=== PATIENT | female | born 1945 | race American Indian/Alaskan Native ===

== ENCOUNTER 2018-09-23 23:47 | Inpatient (IN) | payer OTHER, MEDICARE ==
[2018-09-24] MEDS ORDERED: D50W (25GM) Vial IV ONE (00:26)
[2018-09-24] MEDS ORDERED: NACL 0.9% 1000 ML 1,000 ML IV ONE ×4 (00:29→05:52)
[2018-09-24] MEDS ORDERED: D50W (25GM) Syringe IV ONE ×4 (00:37→05:19)
--- NOTE | 2018-09-24 01:21 | XRay Report ---
FINAL REPORT PROCEDURE: XR CHEST 1V AP TECHNIQUE: Chest radiograph anteroposterior view. CPT 61007 HISTORY: hypotension, weakness COMPARISON: No prior studies are available for comparison. FINDINGS: Heart: Heart size is enlarged. Mediastinum/Vessels: Normal. Lungs/Pleural space: Mild infiltrate/atelectasis left lower lung. No effusion or pneumothorax. Bony thorax: No acute osseous abnormality. Life support devices: None. IMPRESSION: Moderate cardiomegaly. There is mild infiltrate/atelectasis in the left lower lung..
[2018-09-24 01:32] LABS: Mean Corpuscular HGB Conc 31 % (30-34); Mean Corpuscular Volume 100 fl (79-97); Platelet Count 151 K/mm3 (140-440); Red Blood Count 4.39 M/mm3 (3.65-5.03)
[2018-09-24 01:33] LABS: Hematocrit 43.8 % (30.3-42.9); Hemoglobin 13.5 gm/dl (10.1-14.3); Red Cell Distribution Width 21.5 % (13.2-15.2)
[2018-09-24] MEDS ORDERED: LEVAQUIN 750MG/150ML 750 MG/150 ML BAG IV ONE (01:46)
[2018-09-24] MEDS ORDERED: ZOSYN/NS 4.5GM/100ML 4.5 GM/100 ML VIAL IV ONE (01:46)
[2018-09-24 02:16] LABS: INR > 17.67 (0.87-1.13)
[2018-09-24 02:17] LABS: Partial Thromboplastin Time 63.4 Sec. (24.2-36.6)
--- NOTE | 2018-09-24 02:43 | Emergency Department Report ---
- General Chief complaint: Hypoglycemia Stated complaint: HYPOTENSION Time Seen by Provider: 09/24/18 00:08 Source: patient Mode of arrival: Ambulatory Limitations: No Limitations - History of Present Illness Initial comments: 73-year-old female with a past medical history atrial fibrillation on Xarelto, DVT, diabetes, hypertension, and chronic renal insufficiency presents to the Hospital complaining of generalized weakness 3 weeks since receiving vascular procedure. Family states that she had crooked veins and she was had a procedure to straighten her veins. She had follow-up visit scheduled for 2 days ago but she did not go secondary to generalized weakness. Patient apparently has not been eating or drinking much the last several days. Accu-Chek was in the 40s upon EMS arrival. Patient received oral glucose and presents to the ER with a glucose in patient received D50 IV after arrival. Patient also hypotensive with systolic and 80s upon arrival with IV fluids initiated by EMS in progress. Patient states [facility] performed vascular surgery. - Related Data Home Medications Medication Instructions Recorded Confirmed Last Taken Allopurinol [Zyloprim] 100 mg PO QDAY 09/24/18 09/24/18 Unknown Atenolol [Tenormin] 50 mg PO BID 09/24/18 09/24/18 Unknown AtorvaSTATin [Lipitor] 20 mg PO QHS 09/24/18 09/24/18 Unknown Diltiazem HCl [Diltiazem ER] 300 mg PO QDAY 09/24/18 09/24/18 Unknown Linagliptin [Tradjenta] 5 mg PO QAM 09/24/18 09/24/18 Unknown RX: Levothyroxine Sodium 137 mcg PO QDAY 09/24/18 09/24/18 Unknown [Levothyroxine] RX: Paricalcitol 1 mcg PO QDAY 09/24/18 09/24/18 Unknown Rivaroxaban [Xarelto] 15 mg PO QPM 09/24/18 09/24/18 Unknown Allergies Allergy/AdvReac Type Severity Reaction Status Date / Time No Known Allergies Allergy Unverified 08/26/18 17:14 ED Review of Systems ROS: Stated complaint: HYPOTENSION Other details as noted in HPI Comment: All other systems reviewed and negative ED Past Medical Hx - Past Medical History Previous Medical History?: Yes Hx Hypertension: Yes Hx Diabetes: Yes Hx Deep Vein Thrombosis: Yes Hx Renal Disease: Yes Additional medical history: Afib - Surgical History Past Surgical History?: Yes Additional Surgical History: Right leg surgery aug 2018 - Social History Smoking Status: Unknown if ever smoked Substance Use Type: None - Medications Home Medications: Home Medications Medication Instructions Recorded Confirmed Last Taken Type Allopurinol [Zyloprim] 100 mg PO QDAY 09/24/18 09/24/18 Unknown History Atenolol [Tenormin] 50 mg PO BID 09/24/18 09/24/18 Unknown History AtorvaSTATin [Lipitor] 20 mg PO QHS 09/24/18 09/24/18 Unknown History Diltiazem HCl [Diltiazem ER] 300 mg PO QDAY 09/24/18 09/24/18 Unknown History Linagliptin [Tradjenta] 5 mg PO QAM 09/24/18 09/24/18 Unknown History RX: Levothyroxine Sodium 137 mcg PO QDAY 09/24/18 09/24/18 Unknown History [Levothyroxine] RX: Paricalcitol 1 mcg PO QDAY 09/24/18 09/24/18 Unknown History Rivaroxaban [Xarelto] 15 mg PO QPM 09/24/18 09/24/18 Unknown History ED Physical Exam - General Limitations: No Limitations - Other Other exam information: General: No limitations, patient is alert in no acute distress Head exam: Atraumatic, normocephalic Eyes exam: Normal appearance, pupils equal reactive to light, extraocular movements intact ENT: Moist mucous membrane, normal oropharynx Neck exam: Normal inspection, full range of motion, no meningismus nontender Respiratory exam: Clear to auscultation bilateral, no wheezes, rales, crackles Cardiovascular: Normal rate and rhythm, normal heart sounds Abdomen: Soft, nondistended, and nontender, with normal bowel sounds, no rebound, or guarding Extremity: Full range of motion normal inspection no deformity Back: Normal Inspection, full range of motion, no tenderness Neurologic: Alert, oriented to self, place, but not to year, cranial nerves intact, no motor or sensory deficit Psychiatric: normal affect, normal mood Skin: Warm, dry, intact ED Course Vital Signs 09/24/18 09/24/18 09/24/18 00:02 00:15 00:23 Temperature 96.9 F L Pulse Rate 114 H 104 H 116 H Pulse Rate [ Anterior Bilateral Throughout] Respiratory 13 18 20 Rate Respiratory Rate [Anterior Bilateral Throughout] Blood Pressure 87/58 87/58 O2 Sat by Pulse Oximetry 09/24/18 09/24/18 09/24/18 00:30 01:23 01:25 Temperature Pulse Rate 105 H 94 H Pulse Rate [ Anterior Bilateral Throughout] Respiratory 26 H 16 Rate Respiratory Rate [Anterior Bilateral Throughout] Blood Pressure 114/55 O2 Sat by Pulse 95 Oximetry 09/24/18 09/24/18 09/24/18 01:31 01:45 02:01 Temperature Pulse Rate 116 H 101 H 102 H Pulse Rate [ Anterior Bilateral Throughout] Respiratory 18 13 17 Rate Respiratory Rate [Anterior Bilateral Throughout] Blood Pressure 93/33 88/47 100/73 O2 Sat by Pulse 18 L Oximetry 09/24/18 09/24/18 09/24/18 02:15 02:31 02:35 Temperature Pulse Rate 110 H 104 H 149 H Pulse Rate [ Anterior Bilateral Throughout] Respiratory 19 18 17 Rate Respiratory Rate [Anterior Bilateral Throughout] Blood Pressure 56/31 99/62 O2 Sat by Pulse 88 Oximetry 09/24/18 09/24/18 09/24/18 02:45 03:01 03:15 Temperature Pulse Rate 99 H 107 H 115 H Pulse Rate [ Anterior Bilateral Throughout] Respiratory 20 27 H 14 Rate Respiratory Rate [Anterior Bilateral Throughout] Blood Pressure 99/62 99/62 99/62 O2 Sat by Pulse Oximetry 09/24/18 09/24/18 09/24/18 03:30 03:45 04:01 Temperature Pulse Rate 118 H 110 H 108 H Pulse Rate [ Anterior Bilateral Throughout] Respiratory 21 22 18 Rate Respiratory Rate [Anterior Bilateral Throughout] Blood Pressure 95/65 94/63 91/66 O2 Sat by Pulse Oximetry 09/24/18 09/24/18 09/24/18 04:09 04:12 04:15 Temperature Pulse Rate 99 H Pulse Rate [ 100 H Anterior Bilateral Throughout] Respiratory 17 Rate Respiratory 23 Rate [Anterior Bilateral Throughout] Blood Pressure 95/51 O2 Sat by Pulse 96 Oximetry 09/24/18 09/24/18 09/24/18 04:25 04:31 04:45 Temperature Pulse Rate 129 H 160 H 151 H Pulse Rate [ Anterior Bilateral Throughout] Respiratory 12 13 Rate Respiratory Rate [Anterior Bilateral Throughout] Blood Pressure 165/98 171/147 171/108 O2 Sat by Pulse Oximetry 09/24/18 09/24/18 09/24/18 05:01 05:15 05:31 Temperature Pulse Rate 151 H 132 H 126 H Pulse Rate [ Anterior Bilateral Throughout] Respiratory 15 15 17 Rate Respiratory Rate [Anterior Bilateral Throughout] Blood Pressure 165/98 141/117 141/117 O2 Sat by Pulse Oximetry 09/24/18 09/24/18 09/24/18 05:45 06:01 06:15 Temperature Pulse Rate 133 H 113 H 116 H Pulse Rate [ Anterior Bilateral Throughout] Respiratory 17 19 18 Rate Respiratory Rate [Anterior Bilateral Throughout] Blood Pressure 65/34 68/43 113/65 O2 Sat by Pulse Oximetry 09/24/18 09/24/18 09/24/18 06:31 06:40 06:45 Temperature Pulse Rate 111 H 109 H Pulse Rate [ 127 H Anterior Bilateral Throughout] Respiratory 19 14 Rate Respiratory 19 Rate [Anterior Bilateral Throughout] Blood Pressure 107/49 82/53 O2 Sat by Pulse Oximetry 09/24/18 09/24/18 09/24/18 06:51 06:55 07:00 Temperature 95.9 F L Pulse Rate 119 H 110 H Pulse Rate [ Anterior Bilateral Throughout] Respiratory 24 18 Rate Respiratory Rate [Anterior Bilateral Throughout] Blood Pressure 85/61 90/60 O2 Sat by Pulse Oximetry 09/24/18 09/24/18 09/24/18 07:01 07:05 07:11 Temperature Pulse Rate 103 H 126 H 133 H Pulse Rate [ Anterior Bilateral Throughout] Respiratory 17 17 18 Rate Respiratory Rate [Anterior Bilateral Throughout] Blood Pressure 100/68 100/68 107/56 O2 Sat by Pulse Oximetry 09/24/18 09/24/18 09/24/18 07:15 07:20 07:25 Temperature Pulse Rate 108 H 103 H 109 H Pulse Rate [ Anterior Bilateral Throughout] Respiratory 19 17 17 Rate Respiratory Rate [Anterior Bilateral Throughout] Blood Pressure 106/64 114/63 98/71 O2 Sat by Pulse Oximetry 09/24/18 09/24/18 09/24/18 07:30 07:35 07:40 Temperature Pulse Rate 109 H 108 H 102 H Pulse Rate [ Anterior Bilateral Throughout] Respiratory 15 16 13 Rate Respiratory Rate [Anterior Bilateral Throughout] Blood Pressure 96/67 96/64 98/65 O2 Sat by Pulse Oximetry 09/24/18 09/24/18 09/24/18 07:45 07:50 07:55 Temperature Pulse Rate 119 H 106 H 122 H Pulse Rate [ Anterior Bilateral Throughout] Respiratory 14 13 15 Rate Respiratory Rate [Anterior Bilateral Throughout] Blood Pressure 98/58 88/65 82/59 O2 Sat by Pulse Oximetry 09/24/18 09/24/18 09/24/18 08:00 08:05 08:10 Temperature Pulse Rate 110 H 111 H 127 H Pulse Rate [ Anterior Bilateral Throughout] Respiratory 16 16 Rate Respiratory Rate [Anterior Bilateral Throughout] Blood Pressure 104/73 98/29 124/57 O2 Sat by Pulse 100 Oximetry 09/24/18 09/24/18 09/24/18 08:11 08:15 08:21 Temperature Pulse Rate 100 H 108 H 120 H Pulse Rate [ Anterior Bilateral Throughout] Respiratory 17 17 17 Rate Respiratory Rate [Anterior Bilateral Throughout] Blood Pressure 46/16 46/16 110/74 O2 Sat by Pulse 83 L Oximetry 09/24/18 09/24/18 09/24/18 08:25 08:27 08:31 Temperature 95.6 F L Pulse Rate 120 H 124 H Pulse Rate [ Anterior Bilateral Throughout] Respiratory 15 18 Rate Respiratory Rate [Anterior Bilateral Throughout] Blood Pressure 110/74 108/68 O2 Sat by Pulse 96 Oximetry 09/24/18 09/24/18 09/24/18 08:34 08:35 08:41 Temperature Pulse Rate 105 H 104 H Pulse Rate [ Anterior Bilateral Throughout] Respiratory 15 17 21 Rate Respiratory Rate [Anterior Bilateral Throughout] Blood Pressure 108/68 103/61 O2 Sat by Pulse 96 92 Oximetry 09/24/18 09/24/18 09/24/18 08:45 08:47 08:50 Temperature Pulse Rate 120 H 108 H Pulse Rate [ Anterior Bilateral Throughout] Respiratory 24 12 22 Rate Respiratory Rate [Anterior Bilateral Throughout] Blood Pressure 95/56 75/59 O2 Sat by Pulse Oximetry 09/24/18 09/24/18 09/24/18 08:55 09:00 09:05 Temperature Pulse Rate 115 H 102 H 115 H Pulse Rate [ Anterior Bilateral Throughout] Respiratory 20 22 21 Rate Respiratory Rate [Anterior Bilateral Throughout] Blood Pressure 75/59 96/69 96/69 O2 Sat by Pulse 100 Oximetry 09/24/18 09/24/18 09/24/18 09:10 09:15 09:21 Temperature Pulse Rate 111 H 107 H 121 H Pulse Rate [ Anterior Bilateral Throughout] Respiratory 24 18 19 Rate Respiratory Rate [Anterior Bilateral Throughout] Blood Pressure 105/65 105/65 101/64 O2 Sat by Pulse 94 Oximetry 09/24/18 09:25 Temperature Pulse Rate 107 H Pulse Rate [ Anterior Bilateral Throughout] Respiratory 18 Rate Respiratory Rate [Anterior Bilateral Throughout] Blood Pressure 110/75 O2 Sat by Pulse Oximetry - Reevaluation(s) Reevaluation #1: 09/24/18 04:03 At this point in time patient has had 3 separate blood draws and each time the values are coming back hemolyzed and grossly abnormal. I placed a left sided EJ with an 18-gauge catheter and I birdie blood from the catheter without going through a Hep-Lock. We then placed the blood into tubes using a syringe without using a needle. I re-ordered for the fourth time coags and a CMP to try to get an accurate value. Systolic pressure in the 90s currently after completing 2 L of normal saline with a map above 65. Patient has significant cardiomegaly on x-ray with chronic A. fib and I'm concerned about CHF. Patient denies feeling short of breath at this time and has clear breaths sounds so we will continue with IV hydration with a 3rd liter of normal saline. Last blood draw was released by the labs although reported to be hemolyzed and shows significant renal insufficiency and uremia likely secondary to dehydration given ratio. Patient has a Augustin to monitor output and not made any urine despite receiving 2 L of normal saline. Patient is more alert compared to arrival presentation. Glucose remaining stable after second amp of D50. Patient covered with broad- spectrum antibiotics for sepsis. Warming blankets in place for mild hypothermia. 09/24/18 Shortly after I placed EJ in albuterol neb was initiated nursing reports that patient became restless, developed agonal respirations, and became unresponsive. Upon my arrival patient had agonal respiration. Initiated bag of oxygen and chest compressions. Patient was in PEA. She received 1 dose of epinephrine and was intubated. Positive return of spontaneous circulation after these actions. Right femoral central line placed using ultrasound. Reevaluation #2: 09/24/18 06:20 I called patient's daughter to inform her of her mother's critical change and poor prognosis. I was unable to get a hold of her spouse. I asked for the daughter to contact the . Both of them plan on returning to the ER - Consultations Consultation #1: 09/24/18 05:12 case d/w Dr Cole regarding dialsysis to clear xarleto and acute on renal failure. 09/24/18 05:23 09/24/18 05:49 case d/w posshazia culpl. jim is not cleared by dialysi Consultation #2: 09/24/18 05:49 case d/w Dr French critical care - Central Line Placement Right Femoral Consent Obtained: emergent situation Time Out Performed: Yes Patient Placed on Monitor/Pulse Ox: Yes MD Prep: mask, gown, gloves Central Line Prep: Chlorhexidine scrub Ultrasound Used for Placement: Yes Central Line Lumen Inserted: triple Bloods Obtained for Lab: Yes Central Line Position: good blood return Dressing Applied: Tegaderm Patient Tolerated Procedure: well Complications: none - EJ/Peripheral Line Neck L Time Out Performed: Yes Indications: multiple IV sites needed Skin Cleansed in Sterile Fashion: Yes Size: 20 Dressing Placed: Tegaderm Patient Tolerated Procedure: well - Intubation Time Out Performed: Yes Sedative: none Laryngoscope: none Size: 3 ET Tube Size: 7.5 Tube Secured Depth (cm): 22 Tube Secured Location: lips Tube Placement Confirmation: visualized tube passing t, equal breath sounds bilat, no breath sounds over epi, confirmation by capnometr Patient Tolerated Procedure: well Intubation Complications: none ED Medical Decision Making - Lab Data Result diagrams: 09/24/18 20:19 09/24/18 07:32 Lab Results 09/24/18 09/24/18 09/24/18 Range/Units 01:14 01:14 01:14 WBC 12.2 H (4.5-11.0) K/mm3 RBC 4.39 (3.65-5.03) M/mm3 Hgb 13.5 (10.1-14.3) gm/dl Hct 43.8 H (30.3-42.9) % MCV 100 H (79-97) fl MCH 31 (28-32) pg MCHC 31 (30-34) % RDW 21.5 H (13.2-15.2) % Plt Count 151 (140-440) K/mm3 Add Manual Diff Complete Total Counted 100 Seg Neuts % (Manual) 81.0 H (40.0-70.0) % Band Neutrophils % 5.0 % Lymphocytes % (Manual) 6.0 L (13.4-35.0) % Reactive Lymphs % (Man) 0 % Monocytes % (Manual) 8.0 H (0.0-7.3) % Eosinophils % (Manual) 0 (0.0-4.3) % Basophils % (Manual) 0 (0.0-1.8) % Metamyelocytes % 0 % Myelocytes % 0 % Promyelocytes % 0 % Blast Cells % 0 % Nucleated RBC % Not Reportable Seg Neutrophils # Man 9.9 H (1.8-7.7) K/mm3 Band Neutrophils # 0.6 K/mm3 Lymphocytes # (Manual) 0.7 L (1.2-5.4) K/mm3 Abs React Lymphs (Man) 0.0 K/mm3 Monocytes # (Manual) 1.0 H (0.0-0.8) K/mm3 Eosinophils # (Manual) 0.0 (0.0-0.4) K/mm3 Basophils # (Manual) 0.0 (0.0-0.1) K/mm3 Metamyelocytes # 0.0 K/mm3 Myelocytes # 0.0 K/mm3 Promyelocytes # 0.0 K/mm3 Blast Cells # 0.0 K/mm3 WBC Morphology Not Reportable Hypersegmented Neuts Not Reportable Hyposegmented Neuts Not Reportable Hypogranular Neuts Not Reportable Smudge Cells Not Reportable Toxic Granulation Not Reportable Toxic Vacuolation Not Reportable Dohle Bodies Not Reportable Pelger-Huet Anomaly Not Reportable Eloisa Rods Not Reportable Platelet Estimate Appears normal Clumped Platelets Not Reportable Plt Clumps, EDTA Not Reportable Large Platelets Not Reportable Giant Platelets Not Reportable Platelet Satelliting Not Reportable Plt Morphology Comment Not Reportable RBC Morphology Not Reportable Dimorphic RBCs Not Reportable Polychromasia Not Reportable Hypochromasia Not Reportable Poikilocytosis Not Reportable Anisocytosis 1+ Microcytosis Not Reportable Macrocytosis Not Reportable Spherocytes Not Reportable Pappenheimer Bodies Not Reportable Sickle Cells Not Reportable Target Cells Not Reportable Tear Drop Cells Not Reportable Ovalocytes 1+ Helmet Cells Not Reportable Castellano-Nile Bodies Not Reportable [place] Rings Not Reportable Kermit Cells Not Reportable Bite Cells Not Reportable Crenated Cell Not Reportable Elliptocytes 1+ Acanthocytes (Spur) Not Reportable Rouleaux Not Reportable Hemoglobin C Crystals Not Reportable Schistocytes Not Reportable Malaria parasites Not Reportable Keenan Bodies Not Reportable Hem Pathologist Commnt No PT > 120.0 H (12.2-14.9) Sec. INR > 17.67 H* (0.87-1.13) APTT 63.4 H* (24.2-36.6) Sec. VBG pH (7.320-7.420) Sodium (137-145) mmol/L Potassium (3.6-5.0) mmol/L Chloride (98-107) mmol/L Carbon Dioxide (22-30) mmol/L Anion Gap mmol/L BUN (7-17) mg/dL Creatinine (0.7-1.2) mg/dL Estimated GFR ml/min BUN/Creatinine Ratio % Glucose (65-100) mg/dL POC Glucose (70-105) Lactic Acid 8.90 H* (0.7-2.0) mmol/L Calcium (8.4-10.2) mg/dL Total Bilirubin (0.1-1.2) mg/dL AST (5-40) units/L ALT (7-56) units/L Alkaline Phosphatase (35-129) units/L Total Creatine Kinase (30-135) units/L CK-MB (CK-2) (0.0-4.0) ng/mL CK-MB (CK-2) Rel Index (0-4) Troponin T (0.00-0.029) ng/mL Total Protein (6.3-8.2) g/dL Albumin (3.9-5) g/dL Albumin/Globulin Ratio % Triglycerides (2-149) mg/dL Cholesterol (50-199) mg/dL LDL Cholesterol Direct (50-130) mg/dL HDL Cholesterol (40-59) mg/dL Cholesterol/HDL Ratio % 09/24/18 09/24/18 09/24/18 Range/Units 01:21 03:03 03:13 WBC (4.5-11.0) K/mm3 RBC (3.65-5.03) M/mm3 Hgb (10.1-14.3) gm/dl Hct (30.3-42.9) % MCV (79-97) fl MCH (28-32) pg MCHC (30-34) % RDW (13.2-15.2) % Plt Count (140-440) K/mm3 Add Manual Diff Total Counted Seg Neuts % (Manual) (40.0-70.0) % Band Neutrophils % % Lymphocytes % (Manual) (13.4-35.0) % Reactive Lymphs % (Man) % Monocytes % (Manual) (0.0-7.3) % Eosinophils % (Manual) (0.0-4.3) % Basophils % (Manual) (0.0-1.8) % Metamyelocytes % % Myelocytes % % Promyelocytes % % Blast Cells % % Nucleated RBC % Seg Neutrophils # Man (1.8-7.7) K/mm3 Band Neutrophils # K/mm3 Lymphocytes # (Manual) (1.2-5.4) K/mm3 Abs React Lymphs (Man) K/mm3 Monocytes # (Manual) (0.0-0.8) K/mm3 Eosinophils # (Manual) (0.0-0.4) K/mm3 Basophils # (Manual) (0.0-0.1) K/mm3 Metamyelocytes # K/mm3 Myelocytes # K/mm3 Promyelocytes # K/mm3 Blast Cells # K/mm3 WBC Morphology Hypersegmented Neuts Hyposegmented Neuts Hypogranular Neuts Smudge Cells Toxic Granulation Toxic Vacuolation Dohle Bodies Pelger-Huet Anomaly Eloisa Rods Platelet Estimate Clumped Platelets Plt Clumps, EDTA Large Platelets Giant Platelets Platelet Satelliting Plt Morphology Comment RBC Morphology Dimorphic RBCs Polychromasia Hypochromasia Poikilocytosis Anisocytosis Microcytosis Macrocytosis Spherocytes Pappenheimer Bodies Sickle Cells Target Cells Tear Drop Cells Ovalocytes Helmet Cells Castellano-Nile Bodies [place] Rings Kristian Cells Bite Cells Crenated Cell Elliptocytes Acanthocytes (Spur) Rouleaux Hemoglobin C Crystals Schistocytes Malaria parasites Keenan Bodies Hem Pathologist Commnt PT (12.2-14.9) Sec. INR (0.87-1.13) APTT (24.2-36.6) Sec. VBG pH (7.320-7.420) Sodium 142 (137-145) mmol/L Potassium 5.8 H (3.6-5.0) mmol/L Chloride 102.2 (98-107) mmol/L Carbon Dioxide 12 L (22-30) mmol/L Anion Gap 34 mmol/L BUN 78 H (7-17) mg/dL Creatinine 6.4 H (0.7-1.2) mg/dL Estimated GFR 8 ml/min BUN/Creatinine Ratio 12 % Glucose 157 H (65-100) mg/dL POC Glucose 79 142 H (70-105) Lactic Acid (0.7-2.0) mmol/L Calcium 8.0 L (8.4-10.2) mg/dL Total Bilirubin 5.10 H (0.1-1.2) mg/dL AST 623 H (5-40) units/L ALT 264 H (7-56) units/L Alkaline Phosphatase 219 H (35-129) units/L Total Creatine Kinase (30-135) units/L CK-MB (CK-2) (0.0-4.0) ng/mL CK-MB (CK-2) Rel Index (0-4) Troponin T (0.00-0.029) ng/mL Total Protein 5.9 L (6.3-8.2) g/dL Albumin 3.1 L (3.9-5) g/dL Albumin/Globulin Ratio 1.1 % Triglycerides (2-149) mg/dL Cholesterol (50-199) mg/dL LDL Cholesterol Direct (50-130) mg/dL HDL Cholesterol (40-59) mg/dL Cholesterol/HDL Ratio % 09/24/18 09/24/18 09/24/18 Range/Units 03:13 03:13 04:06 WBC (4.5-11.0) K/mm3 RBC (3.65-5.03) M/mm3 Hgb (10.1-14.3) gm/dl Hct (30.3-42.9) % MCV (79-97) fl MCH (28-32) pg MCHC (30-34) % RDW (13.2-15.2) % Plt Count (140-440) K/mm3 Add Manual Diff Total Counted Seg Neuts % (Manual) (40.0-70.0) % Band Neutrophils % % Lymphocytes % (Manual) (13.4-35.0) % Reactive Lymphs % (Man) % Monocytes % (Manual) (0.0-7.3) % Eosinophils % (Manual) (0.0-4.3) % Basophils % (Manual) (0.0-1.8) % Metamyelocytes % % Myelocytes % % Promyelocytes % % Blast Cells % % Nucleated RBC % Seg Neutrophils # Man (1.8-7.7) K/mm3 Band Neutrophils # K/mm3 Lymphocytes # (Manual) (1.2-5.4) K/mm3 Abs React Lymphs (Man) K/mm3 Monocytes # (Manual) (0.0-0.8) K/mm3 Eosinophils # (Manual) (0.0-0.4) K/mm3 Basophils # (Manual) (0.0-0.1) K/mm3 Metamyelocytes # K/mm3 Myelocytes # K/mm3 Promyelocytes # K/mm3 Blast Cells # K/mm3 WBC Morphology Hypersegmented Neuts Hyposegmented Neuts Hypogranular Neuts Smudge Cells Toxic Granulation Toxic Vacuolation Dohle Bodies Pelger-Huet Anomaly Eloisa Rods Platelet Estimate Clumped Platelets Plt Clumps, EDTA Large Platelets Giant Platelets Platelet Satelliting Plt Morphology Comment RBC Morphology Dimorphic RBCs Polychromasia Hypochromasia Poikilocytosis Anisocytosis Microcytosis Macrocytosis Spherocytes Pappenheimer Bodies Sickle Cells Target Cells Tear Drop Cells Ovalocytes Helmet Cells Castellano-Nile Bodies [place] Rings Kristian Cells Bite Cells Crenated Cell Elliptocytes Acanthocytes (Spur) Rouleaux Hemoglobin C Crystals Schistocytes Malaria parasites Keenan Bodies Hem Pathologist Commnt PT 120.0 H > 120.0 H (12.2-14.9) Sec. INR > 17.67 H* > 17.67 H* (0.87-1.13) APTT 61.3 H* 63.2 H* (24.2-36.6) Sec. VBG pH 7.137 L* (7.320-7.420) Sodium (137-145) mmol/L Potassium (3.6-5.0) mmol/L Chloride (98-107) mmol/L Carbon Dioxide (22-30) mmol/L Anion Gap mmol/L BUN (7-17) mg/dL Creatinine (0.7-1.2) mg/dL Estimated GFR ml/min BUN/Creatinine Ratio % Glucose (65-100) mg/dL POC Glucose (70-105) Lactic Acid (0.7-2.0) mmol/L Calcium (8.4-10.2) mg/dL Total Bilirubin (0.1-1.2) mg/dL AST (5-40) units/L ALT (7-56) units/L Alkaline Phosphatase (35-129) units/L Total Creatine Kinase (30-135) units/L CK-MB (CK-2) (0.0-4.0) ng/mL CK-MB (CK-2) Rel Index (0-4) Troponin T (0.00-0.029) ng/mL Total Protein (6.3-8.2) g/dL Albumin (3.9-5) g/dL Albumin/Globulin Ratio % Triglycerides (2-149) mg/dL Cholesterol (50-199) mg/dL LDL Cholesterol Direct (50-130) mg/dL HDL Cholesterol (40-59) mg/dL Cholesterol/HDL Ratio % 09/24/18 09/24/18 Range/Units 04:06 04:26 WBC (4.5-11.0) K/mm3 RBC (3.65-5.03) M/mm3 Hgb (10.1-14.3) gm/dl Hct (30.3-42.9) % MCV (79-97) fl MCH (28-32) pg MCHC (30-34) % RDW (13.2-15.2) % Plt Count (140-440) K/mm3 Add Manual Diff Total Counted Seg Neuts % (Manual) (40.0-70.0) % Band Neutrophils % % Lymphocytes % (Manual) (13.4-35.0) % Reactive Lymphs % (Man) % Monocytes % (Manual) (0.0-7.3) % Eosinophils % (Manual) (0.0-4.3) % Basophils % (Manual) (0.0-1.8) % Metamyelocytes % % Myelocytes % % Promyelocytes % % Blast Cells % % Nucleated RBC % Seg Neutrophils # Man (1.8-7.7) K/mm3 Band Neutrophils # K/mm3 Lymphocytes # (Manual) (1.2-5.4) K/mm3 Abs React Lymphs (Man) K/mm3 Monocytes # (Manual) (0.0-0.8) K/mm3 Eosinophils # (Manual) (0.0-0.4) K/mm3 Basophils # (Manual) (0.0-0.1) K/mm3 Metamyelocytes # K/mm3 Myelocytes # K/mm3 Promyelocytes # K/mm3 Blast Cells # K/mm3 WBC Morphology Hypersegmented Neuts Hyposegmented Neuts Hypogranular Neuts Smudge Cells Toxic Granulation Toxic Vacuolation Dohle Bodies Pelger-Huet Anomaly Eloisa Rods Platelet Estimate Clumped Platelets Plt Clumps, EDTA Large Platelets Giant Platelets Platelet Satelliting Plt Morphology Comment RBC Morphology Dimorphic RBCs Polychromasia Hypochromasia Poikilocytosis Anisocytosis Microcytosis Macrocytosis Spherocytes Pappenheimer Bodies Sickle Cells Target Cells Tear Drop Cells Ovalocytes Helmet Cells Castellano-Nile Bodies [place] Rings Kermit Cells Bite Cells Crenated Cell Elliptocytes Acanthocytes (Spur) Rouleaux Hemoglobin C Crystals Schistocytes Malaria parasites Keenan Bodies Hem Pathologist Commnt PT (12.2-14.9) Sec. INR (0.87-1.13) APTT (24.2-36.6) Sec. VBG pH (7.320-7.420) Sodium 139 (137-145) mmol/L Potassium 5.7 H (3.6-5.0) mmol/L Chloride 103.3 (98-107) mmol/L Carbon Dioxide 11 L (22-30) mmol/L Anion Gap 30 mmol/L BUN 76 H (7-17) mg/dL Creatinine 6.1 H (0.7-1.2) mg/dL Estimated GFR 8 ml/min BUN/Creatinine Ratio 12 % Glucose 175 H (65-100) mg/dL POC Glucose 154 H (70-105) Lactic Acid (0.7-2.0) mmol/L Calcium 7.5 L (8.4-10.2) mg/dL Total Bilirubin 4.80 H (0.1-1.2) mg/dL AST 606 H (5-40) units/L ALT 255 H (7-56) units/L Alkaline Phosphatase 197 H (35-129) units/L Total Creatine Kinase 1306 H (30-135) units/L CK-MB (CK-2) 37.5 H (0.0-4.0) ng/mL CK-MB (CK-2) Rel Index 2.8 (0-4) Troponin T 0.152 H* (0.00-0.029) ng/mL Total Protein 5.7 L (6.3-8.2) g/dL Albumin 2.9 L (3.9-5) g/dL Albumin/Globulin Ratio 1.0 % Triglycerides 73 (2-149) mg/dL Cholesterol 174 (50-199) mg/dL LDL Cholesterol Direct 110 (50-130) mg/dL HDL Cholesterol 55 (40-59) mg/dL Cholesterol/HDL Ratio 3.16 % - EKG Data -: EKG Interpreted by Me (afib) EKG shows normal: axis (qrs 137), QRS complexes (qrsd 98), ST-T waves (no stemi) - EKG Data When compared to previous EKG there are: no significant change - Radiology Data Radiology results: report reviewed FINAL REPORT PROCEDURE: XR CHEST 1V AP TECHNIQUE: Chest radiograph anteroposterior view. CPT 56518 HISTORY: hypotension, weakness COMPARISON: No prior studies are available for comparison. FINDINGS: Heart: Heart size is enlarged. Mediastinum/Vessels: Normal. Lungs/Pleural space: Mild infiltrate/atelectasis left lower lung. No effusion or pneumothorax. Bony thorax: No acute osseous abnormality. Life support devices: None. IMPRESSION: Moderate cardiomegaly. There is mild infiltrate/atelectasis in the left lower lung.. FINAL REPORT PROCEDURE: XR CHEST 1V AP TECHNIQUE: Chest radiograph anteroposterior view. CPT 05309 HISTORY: ETT placement COMPARISON: Earlier the same date FINDINGS: Heart: Heart size is enlarged stable. Mediastinum/Vessels: Normal. Lungs/Pleural space: No significant change in mild infiltrate/atelectasis left lower lung.. Bony thorax: No acute osseous abnormality. Life support devices: The endotracheal tube ends at the alfonso. A nasogastric tube is curled in the upper esophagus.. IMPRESSION: No significant change in mild infiltrate/atelectasis left lower lung. Stable cardiomegaly. The nasogastric tube is curled in the upper esophagus and will need to be repositioned. The endotracheal tube ends at the alfonso. These tubes need to be repositioned. The above findings are discussed patient's ER physician Dr. Ryan at the time of dictation 05:28 Eastern standard time on 09/24/2018 - Medical Decision Making After patient's family left the bedside patient arrested. Patient is very sick with severe sepsis, septic shock, possible DIC with multiorgan dysfunction. Patient has a very poor prognosis. Case discussed with the renal, poison control, and critical care attending in the ED. Patient admitted to ICU to hospitalist service. - Differential Diagnosis sepsis, septic shock, coagulopathy, bleeding, infection. Critical Care Time: Yes Critical care time in (mins) excluding proc time.: 90 Critical care attestation.: If time is entered above; I have spent that time in minutes in the direct care of this critically ill patient, excluding procedure time. ED Disposition Clinical Impression: Septic shock, Multiple organ failure, Coagulopathy, Acute on chronic renal failure, Pulmonary infiltrate, Elevated LFTs, Hyperkalemia, Lactic acid acidosis Disposition: DC-[id number] OP ADMIT IP TO THIS HOSP Is pt being admited?: Yes Time of Disposition: 05:53 (Dr Cole/hosp)
[2018-09-24 03:01] LABS: Anisocytosis 1+; Band Neutrophils # (Manual) 0.6 K/mm3; Basophils % (Manual) 0 % (0.0-1.8); Eosinophils % (Manual) 0 % (0.0-4.3); Ovalocytes 1+; Total Cells Counted 100
[2018-09-24 03:44] LABS: Albumin 3.1 g/dL (3.9-5)
[2018-09-24 03:51] LABS: INR > 17.67 (0.87-1.13); Partial Thromboplastin Time 61.3 Sec. (24.2-36.6)
[2018-09-24] MEDS ORDERED: VANCOMYCIN 2,000 MG in NACL 0.9% 500 ML 500 ML IV ONE (04:00)
[2018-09-24] MEDS ORDERED: PROVENTIL IH ONE (04:02)
[2018-09-24] MEDS ORDERED: ADRENALIN ONE ×2 (04:20→18:10)
[2018-09-24 04:29] LABS: Creatine Kinase MB 37.5 ng/mL (0.0-4.0)
[2018-09-24 04:30] LABS: Albumin 2.9 g/dL (3.9-5); Calcium 7.5 mg/dL (8.4-10.2)
[2018-09-24 04:48] LABS: INR > 17.67 (0.87-1.13)
[2018-09-24 04:49] LABS: Partial Thromboplastin Time 63.2 Sec. (24.2-36.6)
[2018-09-24] MEDS ORDERED: ARTIFICIAL TEARS OPHTH OINT OU PRN (04:54)
[2018-09-24] MEDS ORDERED: VASELINE LIP THERAPY TP PRN (04:54)
[2018-09-24] MEDS ORDERED: CALCIUM GLUCONATE 1,000 MG in NACL 0.9% 100 ML IV ONE (05:13)
[2018-09-24 05:19] LABS: Chol/HDL Ratio 3.16 %
[2018-09-24] MEDS ORDERED: HumuLIN R IV ONE (05:19)
--- NOTE | 2018-09-24 05:29 | XRay Report ---
FINAL REPORT PROCEDURE: XR CHEST 1V AP TECHNIQUE: Chest radiograph anteroposterior view. CPT 01942 HISTORY: ETT placement COMPARISON: Earlier the same date FINDINGS: Heart: Heart size is enlarged stable. Mediastinum/Vessels: Normal. Lungs/Pleural space: No significant change in mild infiltrate/atelectasis left lower lung.. Bony thorax: No acute osseous abnormality. Life support devices: The endotracheal tube ends at the alfonso. A nasogastric tube is curled in the u pper esophagus.. IMPRESSION: No significant change in mild infiltrate/atelectasis left lower lung. Stable cardiomegaly. The nasogastric tube is curled in the upper esophagus and will need to be repositioned. The endotrach eal tube ends at the alfonso. These tubes need to be repositioned. The above findings are discussed patient's ER physician Dr. Ryan at the time of dictation 05:28 Gena sands standard time on 09/24/2018
[2018-09-24] MEDS ORDERED: ZOFRAN IV PRN (06:06)
[2018-09-24] MEDS ORDERED: LEVOPHED DRIP 4 MG/NS 250 ML 4 MG/250 ML BAG IV ONE (06:06)
[2018-09-24] MEDS ORDERED: TYLENOL PR PRN (06:09)
--- NOTE | 2018-09-24 06:13 | XRay Report ---
FINAL REPORT PROCEDURE: XR CHEST 1V AP TECHNIQUE: Chest radiograph anteroposterior view. CPT 92562 HISTORY: E T TUBE insertion COMPARISON: Earlier the same day FINDINGS: Heart: Size remains enlarged stable. Mediastinum/Vessels: Normal. Lungs/Pleural space: Slight infiltrate/atelectasis in the lower lungs are noted.. Bony thorax: No acute osseous abnormality. Life support devices: The endotracheal tube ends 3 centimeters above the alfonso. A nasogastric tube e nds below the hemidiaphragms. IMPRESSION: Tubes are properly positioned. Mild atelectasis in both lower lungs. Stable cardiomegaly..
--- NOTE | 2018-09-24 06:13 | XRay Report ---
FINAL REPORT PROCEDURE: XR ABDOMEN 1V AP TECHNIQUE: Abdominal radiograph, single supine AP view. HISTORY: ngt COMPARISON: No prior studies are available for comparison. FINDINGS: Bowel gas pattern:Nonobstructive. Masses or calcifications:None. Bony structures:No significant abnormality. Other:Nasogastric tube ends in the lower stomach. IMPRESSION: The nasogastric tube ends in the lower stomach
[2018-09-24] MEDS: LEVOPHED DRIP 4 MG/NS 250 ML 4 MG/250 ML BAG IV SCH ×3 (06:30→22:15)
[2018-09-24] MEDS: NACL 0.9% 1000 ML 1,000 ML IV SCH ×5 (06:59→20:37)
[2018-09-24] MEDS ORDERED: VANCOMYCIN PHARMACY TO DOSE IV SCH (07:00)
[2018-09-24 07:02] LABS: Calcium 7.4 mg/dL (8.4-10.2)
[2018-09-24 08:02] LABS: Calcium 7.3 mg/dL (8.4-10.2)
--- NOTE | 2018-09-24 08:42 | Consultation ---
Addendum entered and electronically signed by DAPHNEY NAVARRO MD 09/24/18 12:02: PEA cardiac arrest Coagulopathy / ? DIC / ? xarelto toxicity Acute respiratory failure Hypotension Acute on chronic renal failure Increased risk for spontaneous significant bleed PCC and Vit K ordered Discussed case with Pharmacology, hematology and interventional radiology. Plan for emergent dialysis Echo 10/2017: showed EF 50-55%, RA severely dilated, mod MR, severe TR, mild to mod OR, RV mod dilated, mod pulm HTN with RVSP 58mmHg. Lexiscan MPI 06/2017: showed small partly reversible anterior wall defect, severe septal hypokinesis, EF 57%, suggestive of small area of prior infarction with minimal residual ischemia in the LAD, no significant ischemia. Original Note: History of Present Illness Consult date: 09/24/18 Requesting physician: RADHA TRIPLETT Consult reason: other (bleeding) History of present illness: The pt is a 73 YO female with a past medical history of HFpEF, permanent atrial fibrillation, anticoagulated with xarelto, HTN, HLP, DM, CKD, CVI. She is followed in our office by Dr. Barbosa. She is intubated on evaluation and thus HPI obtained per the chart and per family members at bedside. Per pt's family members, pt has been experiencing generalized weakness and lethargy with decreased oral intake for the past 3 weeks. She was noted to develop confusion and increased lethargy and weakness yesterday evening. Following arrival to ED, pt was noted to be hypotensive and hypoglycemic with hypothermia. This morning in ED, the patient became restless, developed agonal respirations, and became unresponsive. She was noted to be in PEA and ACLS was initiated. She received 1 dose of epinephrine and was intubated and ROSC was obtained. Labwork is significant for coagulopathy with INR >17, DDimer >4K, fibrinogen 140, acute renal failure, hyperkalemia, lactic acidosis, transaminitis. Pt is currently intubated, on levophed gtt, bleeding noted from OG tube. Of note, pt underwent RLE venous ablation on 09/09/2018 per [facility]. Per her family, she has been experiencing weakness since this procedure. Echo done 10/2017 showed EF 50-55%, RA severely dilated, mod MR, severe TR, mild to mod OR, RV mod dilated, mod pulm HTN with RVSP 58mmHg. Lexiscan MPI stress test done 06/2017 showed small partly reversible anterior wall defect, severe septal hypokinesis, EF 57%, suggestive of small area of prior infarction with minimal residual ischemia in the LAD, no significant ischemia. Past History Past Medical History: atrial fib, diabetes, hypertension, hyperlipidemia, other (CKD; CVI) Medications and Allergies Allergies Allergy/AdvReac Type Severity Reaction Status Date / Time No Known Allergies Allergy Unverified 08/26/18 17:14 Home Medications Medication Instructions Recorded Confirmed Last Taken Type Allopurinol [Zyloprim] 100 mg PO QDAY 09/24/18 09/24/18 Unknown History Atenolol [Tenormin] 50 mg PO BID 09/24/18 09/24/18 Unknown History AtorvaSTATin [Lipitor] 20 mg PO QHS 09/24/18 09/24/18 Unknown History Diltiazem HCl [Diltiazem ER] 300 mg PO QDAY 09/24/18 09/24/18 Unknown History Levothyroxine Sodium 137 mcg PO QDAY 09/24/18 09/24/18 Unknown History [Levothyroxine] Linagliptin [Tradjenta] 5 mg PO QAM 09/24/18 09/24/18 Unknown History Paricalcitol 1 mcg PO QDAY 09/24/18 09/24/18 Unknown History Rivaroxaban [Xarelto] 15 mg PO QPM 09/24/18 09/24/18 Unknown History Active Meds: Active Medications Acetaminophen (Tylenol) 650 mg [place] Q4H PRN PRN Reason: Fever >101 Hydrophilic Ointment (Vaseline Lip Therapy) 1 applic TP Q2HR PRN PRN Reason: Dry Lips Norepinephrine (Levophed Drip 4 Mg/Ns 250 Ml) 4 mg in 250 mls @ 7.5 mls/hr IV TITR KATHRINE; Protocol Last Titration: 09/24/18 08:20 Dose: 6 mcg/min, 22.5 mls/hr Documented by: Sodium Chloride (Nacl 0.9% 1000 Ml) 1,000 mls @ 125 mls/hr IV DIRECT KATHRINE Last Admin: 09/24/18 06:59 Dose: 125 mls/hr Documented by: Piperacillin Sod/Tazobactam Sod (Zosyn/Ns 2.25 Gm/50ml) 2.25 gm in 50 mls @ 100 mls/hr IV Q8H [facility] PROTHROMBIN COMPLEX HUMAN(PCC) 3,069 unit/ PROTHROMBIN COMPLEX HUMAN(PCC) 1,931 unit/Sterile Water 120 mls @ 480 mls/hr IV ONCE ONE Stop: 09/24/18 08:59 Multi-Ingred Cream/Lotion/Oil/Oint (Artificial Tears Ophth Oint) 1 applic OU Q4HR PRN PRN Reason: Dry Eye(s) Ondansetron HCl (Zofran) 4 mg IV Q8H PRN PRN Reason: Nausea And Vomiting Review of Systems ROS unobtainable: due to endotracheal tube, due to mental status Physical Examination Vital Signs Pulse Resp 114 H 13 09/24/18 00:02 09/24/18 00:02 General appearance: other (intubated ) Cardiac: Positive: irregularly irregular, S1/S2 Lungs: Positive: Decreased Breath Sounds, Other (intubated ) Neuro: Positive: Other (intubated ) Results 09/24/18 07:55 09/24/18 07:32 Cardiac Enzymes 09/24/18 09/24/18 Range/Units 03:13 04:06 AST 623 H 606 H (5-40) units/L CK-MB (CK-2) 37.5 H (0.0-4.0) ng/mL Coagulation 09/24/18 09/24/18 09/24/18 Range/Units 01:14 03:13 04:06 PT > 120.0 H 120.0 H > 120.0 H (12.2-14.9) Sec. INR > 17.67 H* > 17.67 H* > 17.67 H* (0.87-1.13) APTT 63.4 H* 61.3 H* 63.2 H* (24.2-36.6) Sec. Lipids 09/24/18 Range/Units 04:06 Triglycerides 73 (2-149) mg/dL Cholesterol 174 (50-199) mg/dL HDL Cholesterol 55 (40-59) mg/dL Cholesterol/HDL Ratio 3.16 % CBC 09/24/18 Range/Units 01:14 WBC 12.2 H (4.5-11.0) K/mm3 RBC 4.39 (3.65-5.03) M/mm3 Hgb 13.5 (10.1-14.3) gm/dl Hct 43.8 H (30.3-42.9) % Plt Count 151 (140-440) K/mm3 Comprehensive Metabolic Panel 09/24/18 09/24/18 09/24/18 Range/Units 03:13 04:06 06:30 Sodium 142 139 140 (137-145) mmol/L Potassium 5.8 H 5.7 H 5.7 H (3.6-5.0) mmol/L Chloride 102.2 103.3 103.3 (98-107) mmol/L Carbon Dioxide 12 L 11 L 12 L (22-30) mmol/L BUN 78 H 76 H 76 H (7-17) mg/dL Creatinine 6.4 H 6.1 H 6.1 H (0.7-1.2) mg/dL Glucose 157 H 175 H 270 H (65-100) mg/dL Calcium 8.0 L 7.5 L 7.4 L (8.4-10.2) mg/dL AST 623 H 606 H (5-40) units/L ALT 264 H 255 H (7-56) units/L Alkaline Phosphatase 219 H 197 H (35-129) units/L Total Protein 5.9 L 5.7 L (6.3-8.2) g/dL Albumin 3.1 L 2.9 L (3.9-5) g/dL 09/24/18 Range/Units 07:32 Sodium 144 (137-145) mmol/L Potassium 5.4 H (3.6-5.0) mmol/L Chloride 107.8 H (98-107) mmol/L Carbon Dioxide 13 L (22-30) mmol/L BUN 73 H (7-17) mg/dL Creatinine 6.6 H (0.7-1.2) mg/dL Glucose 174 H (65-100) mg/dL Calcium 7.3 L (8.4-10.2) mg/dL AST (5-40) units/L ALT (7-56) units/L Alkaline Phosphatase (35-129) units/L Total Protein (6.3-8.2) g/dL Albumin (3.9-5) g/dL - Imaging and Cardiology Echo: report reviewed (10/2017 showed EF 50-55%, RA severely dilated, mod MR, severe TR, mild to mod OR, RV mod dilated, mod pulm HTN with RVSP 58mmHg. ) EKG: report reviewed, image reviewed EKG interpretations - Telemetry EKG Rhythm: Atrial Fibrillation - EKG Supraventricular dysrhythmia: atrial fibrillation Assessment and Plan S/p PEA cardiac arrest F/u echo. NSTEMI ECG with no acute ischemic changes. Cont to trend Rita and serial ECGs. F/u echo. Acute respiratory failure Intubated. Hypotension Requiring vasopressor support. Permanent atrial fibrillation Coagulopathy / ? DIC / ? xarelto toxicity Was anticoagulated on Xarelto at home. Kcentra ordered. H/H currently stable. Cont to trend. Hematology consultation pending. Acute on chronic renal failure / hyperkalemia For emergent HD today. For vascath placement following Kcentra infusion per vascular. D/w Dr. Bonilla. Elevated LFTs Lactic acidosis HLP DM CVI S/p RLE venous ablation on 09/09/2018 The patient has been seen in conjunction with Dr. Navarro who agrees with the assessment and plan of care. - Patient Problems (1) Cardiac arrest Current Visit: Yes Status: Acute (2) Coagulopathy Current Visit: Yes Status: Acute (3) DIC (disseminated intravascular coagulation) Current Visit: Yes Status: Suspected (4) Acute on chronic renal failure Current Visit: Yes Status: Acute (5) Elevated LFTs Current Visit: Yes Status: Acute (6) Hyperkalemia Current Visit: Yes Status: Acute (7) Lactic acid acidosis Current Visit: Yes Status: Acute (8) Atrial fibrillation Current Visit: Yes Status: Chronic (9) Diabetes Current Visit: Yes Status: Chronic (10) Chronic venous insufficiency Current Visit: Yes Status: Chronic
--- NOTE | 2018-09-24 08:43 | Consultation ---
History of Present Illness - History of Present Illness Thank you for the consultation ! Patient was evaluated today My assessment and plan are as follows; Acute kidney injury: Severe in a patient who is 73-year-old being admitted with hypotension and respiratory failure, metabolic acidosis hyperkalemia, patient will require renal replacement therapy; in critical care setting history of underlying chronic kidney disease, creatinine was around 4 in August 2018 Hyperkalemia has been treated medically at this point will follow patient will require renal replacement therapy which is not without risk discussed with patient's daughter as well as patient's during this admission Respiratory failure: Currently intubated Elevated INR patient's INR was around 18 almost she was taking Xalatan outpatient setting currently being followed by primary medicine, patient will require to see cardiology and possibly hematology oncology as she was admitted with generalized bleeding and is very high risk in my opinion Discussed with the ER nurse to consult cardiology, and possibly hematology oncology as well Severe lactic acidosis which was 8.9 upon admission needs follow-up, patient has also been hypotensive Abnormal troponin:, high risk patient needs to be followed Shock liver likely significantly elevated liver enzymes at niece to be followed to Had a long discussion with patient's at length and at this point he does understand the seriousness of her health issues, high mortality risk and need for hemodialysis was also discussed which is also not going to be without risk including remotely possible given that patient is critically ill, knowing the risk and benefit patient's gives me permission to proceed with hemodialysis central venous catheter placement Also had a chance to meet with patient and daughter at the bedside was also explained about patient's very poor prognosis and high mortality risk case was also discussed with patient's nurse, dialysis nurse, Dr. Bonilla vascular Continue with supportive care, in critically ill patient We'll continue to follow from renal standpoint We will continue to follow and make recommendations from renal standpoint. Thank you for the consultation Author: Colin Cole M.D. [facility], [address] [place] [address] Tel; [phone] Source of information: From current chart, patient's , History of present illness Patient is a 73-year-old -[place] female who has been admitted here with the generalized weakness of 3 weeks' duration, after she has had the vascular procedure done for her veins. Patient was also noted to be hypoglycemic and when Dr. Carrion called me she was not doing well and in fact was bleeding profusely, which was felt to be due to coagulation problems she was also profoundly hypotensive and was given IV fluid patient also has had evidence of metabolic acidosis respiratory failure requiring intubation. Her hyperkalemia was treated medically, have follow-up labs were ordered, patient is currently being followed by [facility] nanofabrication specialist. She is currently on vasopressor and is intubated This morning patient developed agonal breathing and was also unresponsive went into PEA and was subsequently resuscitated Patient was also seen in the ER on number 20th due to epistaxis, at that time her creatinine was 4.1 Past medical history is significant for chronic kidney disease Hypertension Anticoagulation Secondary hyperparathyroidism Current allergies: None Social history: Unable to obtain due to intubated status Family history: Unable to obtain due to intubated status Current medications: Reviewed Review of system unable to obtain due to intubated status Please refer to HPI Physical examination Vitals: Reviewed General: No acute distress, orally intubated critically ill HEENT: Oral mucosa moist no pallor or icterus Neck: Supple without any JVD thyromegaly or nodular mass Chest: bilateral basilar crackles Heart: Regular rate and rhythm S1-S2 heard no S3-S4 Abdomen: Soft nontender, bowel sounds present no renal bruit no suprapubic masses no CVA tenderness noted Extremity: Minimal edema dry skin no peripheral cyanosis Endocrine: Thyroid not enlarged Psychiatric: No agitation and aggression noted Musculoskeletal: No joint effusion noted Labs and x-rays: Reviewed from this admission Medications and Allergies Allergies Allergy/AdvReac Type Severity Reaction Status Date / Time No Known Allergies Allergy Unverified 08/26/18 17:14 Home Medications Medication Instructions Recorded Confirmed Last Taken Type Allopurinol [Zyloprim] 100 mg PO QDAY 09/24/18 09/24/18 Unknown History Atenolol [Tenormin] 50 mg PO BID 09/24/18 09/24/18 Unknown History AtorvaSTATin [Lipitor] 20 mg PO QHS 09/24/18 09/24/18 Unknown History Diltiazem HCl [Diltiazem ER] 300 mg PO QDAY 09/24/18 09/24/18 Unknown History Levothyroxine Sodium 137 mcg PO QDAY 09/24/18 09/24/18 Unknown History [Levothyroxine] Linagliptin [Tradjenta] 5 mg PO QAM 09/24/18 09/24/18 Unknown History Paricalcitol 1 mcg PO QDAY 09/24/18 09/24/18 Unknown History Rivaroxaban [Xarelto] 15 mg PO QPM 09/24/18 09/24/18 Unknown History Active Meds: Active Medications Acetaminophen (Tylenol) 650 mg [place] Q4H PRN PRN Reason: Fever >101 Hydrophilic Ointment (Vaseline Lip Therapy) 1 applic TP Q2HR PRN PRN Reason: Dry Lips Norepinephrine (Levophed Drip 4 Mg/Ns 250 Ml) 4 mg in 250 mls @ 7.5 mls/hr IV TITR KATHRINE; Protocol Last Titration: 09/24/18 08:20 Dose: 6 mcg/min, 22.5 mls/hr Documented by: Sodium Chloride (Nacl 0.9% 1000 Ml) 1,000 mls @ 125 mls/hr IV DIRECT KATHRINE Last Admin: 09/24/18 06:59 Dose: 125 mls/hr Documented by: Piperacillin Sod/Tazobactam Sod (Zosyn/Ns 2.25 Gm/50ml) 2.25 gm in 50 mls @ 100 mls/hr IV Q8H [facility] PROTHROMBIN COMPLEX HUMAN(PCC) 3,069 unit/ PROTHROMBIN COMPLEX HUMAN(PCC) 1,931 unit/Sterile Water 120 mls @ 480 mls/hr IV ONCE ONE Stop: 09/24/18 08:59 Multi-Ingred Cream/Lotion/Oil/Oint (Artificial Tears Ophth Oint) 1 applic OU Q4HR PRN PRN Reason: Dry Eye(s) Ondansetron HCl (Zofran) 4 mg IV Q8H PRN PRN Reason: Nausea And Vomiting Exam - Vital Signs Vital signs: Vital Signs Pulse Resp 114 H 13 09/24/18 00:02 09/24/18 00:02 Results - Lab Results 09/24/18 12:00 09/24/18 07:32 Most recent lab results Calcium 7.3 mg/dL (8.4-10.2) L 09/24/18 07:32
[2018-09-24] MEDS ORDERED: [UNRECOGNIZED DRUG - OTHER] IV ONE (08:45)
[2018-09-24] MEDS ORDERED: KCENTRA IV ONE ×3 (08:45→09:00)
[2018-09-24 08:46] LABS: Hematocrit 39.9 % (30.3-42.9); Hemoglobin 12.3 gm/dl (10.1-14.3)
[2018-09-24] MEDS ORDERED: [UNRECOGNIZED DRUG - OTHER] IV ONE ×2 (09:00)
[2018-09-24] MEDS ORDERED: VITAMIN K (ADULT ONLY) SUB-Q ONE (09:00)
--- NOTE | 2018-09-24 09:13 | History and Physical Report ---
CHIEF COMPLAINT: Low blood pressure. OTHER COMPLAINT: Includes low sugar and weakness. HISTORY OF PRESENT ILLNESS: The patient is a 73-year-old female who said she has been having weakness going on for 3 weeks since receiving some vascular procedure. The patient has some procedure done because of crooked vein according to the family. Procedure was designed to stretching her vein and the patient had a followup visit scheduled 2 days ago, but did not go because of generalized weakness. The patient was noted not to be eating much and drinking much according to the family, and EMS was called and the patient's blood sugar was found to be in the 40s. Also, the patient's blood pressure was running low. The patient was subsequently giving some glucose fluids and started on IV fluids and then the patient was evaluated in the Emergency Room and found to have abnormal lab results especially the coagulation test as well as liver transaminases and lactic acid. While in the Emergency Room, the patient went into cardiopulmonary arrest and was clearly resuscitated, intubated, mechanically ventilated, subsequently started bleeding from the mouth, nose, and vaginal area; and was believed to have disseminated intravascular coagulation and presented for admission. PAST MEDICAL HISTORY: Pertinent for atrial fibrillation, on Xarelto; also the patient has past medical history of hypertension, diabetes mellitus, deep vein thrombosis, and renal insufficiency. PAST SURGICAL HISTORY: Pertinent for right leg surgery last August 2018. FAMILY HISTORY: Noncontributory. SOCIAL HISTORY: The patient does not smoke, does not drink alcohol and does not use illicit drugs. MEDICATIONS: The patient is on allopurinol 100 mg by mouth daily, atenolol 50 mg by mouth twice daily, Lipitor 20 mg by mouth at bedtime, diltiazem or Cardizem 300 mg by mouth daily, levothyroxine 137 mcg by mouth daily, Trajenta 5 mg by mouth every morning, paricalcitol 1 mcg by mouth daily, Xarelto 15 mg by mouth every evening. ALLERGIES: There are no known drug allergies. REVIEW OF SYSTEMS: CONSTITUTIONAL: There is no fever, no chills, no diaphoresis. HEENT: There is no headache or sore throat. CARDIOVASCULAR SYSTEM: There is no chest pain or orthopnea. RESPIRATORY SYSTEM: There is no shortness of breath or cough. GASTROINTESTINAL SYSTEM: There is no nausea, no vomiting, no abdominal pain, diarrhea or constipation, however, the patient has poor oral intake. NEUROLOGICAL SYSTEM: There is generalized weakness with no numbness, no altered mental status. MUSCULOSKELETAL SYSTEM: There is no joint pain or swelling. DERMATOLOGICAL SYSTEM: There is no skin rash or itching. GENITOURINARY SYSTEM: There is no dysuria, hematuria, or flank pain. Rest of system review is normal. PHYSICAL EXAMINATION: GENERAL: At the time of exam, the patient was found to be intubated, mechanically ventilated and sedated and in [id number] distress due to bleeding from different sites. VITAL SIGNS: At the initial time of presentation show temperature of 96.9 degrees Fahrenheit, pulse of 114, respiration 13, blood pressure 87/57, the patient's O2 sat of 95%. HEENT: Shows the patient to be intubated through the mouth and mechanically ventilated with bleeding coming out from the patient's nose and from the nasogastric tube. NECK: Supple with no JVD or carotid bruit. CARDIOVASCULAR SYSTEM: Show normal first and second heart sounds with no gallops or murmur. RESPIRATORY SYSTEM: Show good air entry in both lungs through the ET tube and mechanical ventilation. GASTROINTESTINAL SYSTEM: Show abdomen to be full, soft, nontender with no organomegaly or rigidity. NEUROLOGICAL: Shows no focal deficits at this time. MUSCULOSKELETAL SYSTEM: Show no joint swelling or tenderness. DERMATOLOGICAL SYSTEM: Show no skin rash. GENITOURINARY SYSTEM: Show no costovertebral angle tenderness. PERTINENT IMAGING STUDIES: The patient had chest x-ray done that shows mild atelectasis in both lungs, stable cardiomegaly with ET tube not properly placed. The patient had another chest x-ray done after ET tube adjustment and the x-ray shows nasogastric tube is ____ up in the upper esophagus and will need to be repositioned. Also, the x-ray shows endotracheal tube ____ alfonso and also there is a finding of no significant change in mild infiltrates/atelectasis of the left lower lung. The patient had abdominal x-ray done that shows a nasogastric tube in the lower abdominal area eventually. LAB RESULTS: The patient's CBC shows elevated white count of 12,200 with normal hemoglobin and elevated hematocrit of 43.8%. The patient's coagulation studies show high PT of 120 with high INR of 17.67, high PTT of 61.3. The patient's venous gas pH was low with a value of 7.13 and chemistry showed normal sodium with high potassium level of 5.8, low CO2 of 12, elevated BUN of 78 with high creatinine of 6.4. The patient's lactic acid level was high with a value of 8.9 and the patient's calcium level was low with a value of 8.0. Liver transaminases show high value with AST of 623, ALT of 264, and high alkaline phosphatase of 219. The patient's troponin level was high with a value of 0.152. DIAGNOSES: 1. Sepsis. 2. Disseminated intravascular coagulation with cause unknown. 3. Hyperkalemia. 4. Chronic renal failure. 5. Elevated troponin level. PLAN OF ACTION: 1. The patient will be admitted to ICU critical care. 2. The patient will continue critical care consult with Dr. French, requested by the Emergency Room physician. 3. The patient will continue Nephrology consult with Dr. Cole, requested by the Emergency Room physician. 4. The patient will have cardiac enzymes involving troponin, total CK and CK-MB checked q. 6 hours x 2 more levels. 5. The patient will have basic metabolic panel checked this morning. 6. The patient will be on IV Zosyn 3.375 grams q. 8 hours. 7. The patient will be on IV vancomycin with pharmacy to do. 8. The patient will continue IV Levophed drip, started in the Emergency Room. 9. The patient will be on IV Zofran 4 mg every 8 hours for nausea and vomiting and will be on Tylenol 650 mg by rectum every 4 hours for fever and headache. 10. The patient will be on IV normal saline running at 125 mL an hour. 11. Deep vein thrombosis prophylaxis will be through sequential compressive device. JOB# [id number] OCN/NTS
[2018-09-24] MEDS ORDERED: PEPCID IV SCH (10:00)
[2018-09-24] MEDS ORDERED: DIFLUCAN 200 MG/100 ML BAG IV ONE (11:00)
[2018-09-24] MEDS ORDERED: VITAMIN K (ADULT ONLY) 10 MG in NACL 0.9% 50 ML IV ONE (12:00)
[2018-09-24] MEDS: MORPHINE IV PRN ×2 (12:08→15:00)
[2018-09-24] MEDS: ZOSYN/NS 2.25 GM/50ML 2.25 GM/50 ML BAG IV SCH ×2 (12:08→18:00)
[2018-09-24 12:46] LABS: Hematocrit 41.2 % (30.3-42.9); Hemoglobin 12.9 gm/dl (10.1-14.3)
[2018-09-24 13:01] LABS: Creatine Kinase MB 39.3 ng/mL (0.0-4.0)
--- NOTE | 2018-09-24 13:06 | Consultation ---
History of Present Illness Consult date: 09/24/18 Requesting physician: COMPA PEREYRA Reason for consult: other (Cardiac Arrest, Coagulopathy) History of present illness: 73 y/o female, on Xarelto for AFib and history of VTE in the past who presented to the ED with weakness, hypothermia, hypoglycemia. Also found to be severe coagulopathic with INR greater than 17. H/H stable. Subsequently while being worked up in ED, patient had cardiac arrest, was resuscitated and intubated and transitioned to ICU for further care. She is awake and follows commands as evidenced by her squeezing my right hand on command. Past History Past Medical History: atrial fib, diabetes, hypertension, hyperlipidemia, other (CKD; CVI) Medications and Allergies Allergies Allergy/AdvReac Type Severity Reaction Status Date / Time No Known Allergies Allergy Unverified 08/26/18 17:14 Home Medications Medication Instructions Recorded Confirmed Last Taken Type Allopurinol [Zyloprim] 100 mg PO QDAY 09/24/18 09/24/18 Unknown History Atenolol [Tenormin] 50 mg PO BID 09/24/18 09/24/18 Unknown History AtorvaSTATin [Lipitor] 20 mg PO QHS 09/24/18 09/24/18 Unknown History Diltiazem HCl [Diltiazem ER] 300 mg PO QDAY 09/24/18 09/24/18 Unknown History Levothyroxine Sodium 137 mcg PO QDAY 09/24/18 09/24/18 Unknown History [Levothyroxine] Linagliptin [Tradjenta] 5 mg PO QAM 09/24/18 09/24/18 Unknown History Paricalcitol 1 mcg PO QDAY 09/24/18 09/24/18 Unknown History Rivaroxaban [Xarelto] 15 mg PO QPM 09/24/18 09/24/18 Unknown History Active Meds: Active Medications Acetaminophen (Tylenol) 650 mg MS Q4H PRN PRN Reason: Fever >101 Famotidine (Pepcid) 20 mg IV DAILY KATHRINE Last Admin: 09/24/18 10:49 Dose: 20 mg Documented by: Hydrophilic Ointment (Vaseline Lip Therapy) 1 applic TP Q2HR PRN PRN Reason: Dry Lips Norepinephrine (Levophed Drip 4 Mg/Ns 250 Ml) 4 mg in 250 mls @ 7.5 mls/hr IV TITR KATHRINE; Protocol Last Titration: 09/24/18 08:20 Dose: 6 mcg/min, 22.5 mls/hr Documented by: Sodium Chloride (Nacl 0.9% 1000 Ml) 1,000 mls @ 125 mls/hr IV DIRECT KATHRINE Last Admin: 09/24/18 10:48 Dose: 125 mls/hr Documented by: Piperacillin Sod/Tazobactam Sod (Zosyn/Ns 2.25 Gm/50ml) 2.25 gm in 50 mls @ 100 mls/hr IV Q8H KATHRINE Last Admin: 09/24/18 12:08 Dose: 100 mls/hr Documented by: Morphine Sulfate (Morphine) 2 mg IV Q4H PRN PRN Reason: Pain, Moderate (4-6) Last Admin: 09/24/18 12:08 Dose: 2 mg Documented by: Multi-Ingred Cream/Lotion/Oil/Oint (Artificial Tears Ophth Oint) 1 applic OU Q4HR PRN PRN Reason: Dry Eye(s) Ondansetron HCl (Zofran) 4 mg IV Q8H PRN PRN Reason: Nausea And Vomiting Physical Examination Vital signs: Vital Signs Pulse Resp 114 H 13 09/24/18 00:02 09/24/18 00:02 Results - Laboratory Findings CBC and BMP: 09/24/18 20:19 09/24/18 07:32 PT/INR, D-dimer PT > 120.0 Sec. (12.2-14.9) H 09/24/18 04:06 INR > 17.67 (0.87-1.13) H* 09/24/18 04:06 D-Dimer 4810.69 ng/mlDDU (0-234) H 09/24/18 04:06 Abnormal lab findings: Abnormal Labs 09/23/18 09/24/18 09/24/18 23:58 01:14 01:14 WBC 12.2 H Hct 43.8 H MCV 100 H RDW 21.5 H Seg Neuts % (Manual) 81.0 H Lymphocytes % (Manual) 6.0 L Monocytes % (Manual) 8.0 H Seg Neutrophils # Man 9.9 H Lymphocytes # (Manual) 0.7 L Monocytes # (Manual) 1.0 H PT INR APTT Fibrinogen D-Dimer VBG pH Potassium Chloride Carbon Dioxide BUN Creatinine Glucose POC Glucose 50 L Lactic Acid 8.90 H* Calcium Total Bilirubin AST ALT Alkaline Phosphatase Total Creatine Kinase CK-MB (CK-2) Troponin T Total Protein Albumin 09/24/18 09/24/18 09/24/18 01:14 03:03 03:13 WBC Hct MCV RDW Seg Neuts % (Manual) Lymphocytes % (Manual) Monocytes % (Manual) Seg Neutrophils # Man Lymphocytes # (Manual) Monocytes # (Manual) PT > 120.0 H INR > 17.67 H* APTT 63.4 H* Fibrinogen D-Dimer VBG pH Potassium 5.8 H Chloride Carbon Dioxide 12 L BUN 78 H Creatinine 6.4 H Glucose 157 H POC Glucose 142 H Lactic Acid Calcium 8.0 L Total Bilirubin 5.10 H AST 623 H ALT 264 H Alkaline Phosphatase 219 H Total Creatine Kinase CK-MB (CK-2) Troponin T Total Protein 5.9 L Albumin 3.1 L 09/24/18 09/24/18 09/24/18 03:13 03:13 04:06 WBC Hct MCV RDW Seg Neuts % (Manual) Lymphocytes % (Manual) Monocytes % (Manual) Seg Neutrophils # Man Lymphocytes # (Manual) Monocytes # (Manual) PT 120.0 H > 120.0 H INR > 17.67 H* > 17.67 H* APTT 61.3 H* 63.2 H* Fibrinogen D-Dimer VBG pH 7.137 L* Potassium Chloride Carbon Dioxide BUN Creatinine Glucose POC Glucose Lactic Acid Calcium Total Bilirubin AST ALT Alkaline Phosphatase Total Creatine Kinase CK-MB (CK-2) Troponin T Total Protein Albumin 09/24/18 09/24/18 09/24/18 04:06 04:06 04:26 WBC Hct MCV RDW Seg Neuts % (Manual) Lymphocytes % (Manual) Monocytes % (Manual) Seg Neutrophils # Man Lymphocytes # (Manual) Monocytes # (Manual) PT INR APTT Fibrinogen 140 L D-Dimer 4810.69 H VBG pH Potassium 5.7 H Chloride Carbon Dioxide 11 L BUN 76 H Creatinine 6.1 H Glucose 175 H POC Glucose 154 H Lactic Acid Calcium 7.5 L Total Bilirubin 4.80 H AST 606 H ALT 255 H Alkaline Phosphatase 197 H Total Creatine Kinase 1306 H CK-MB (CK-2) 37.5 H Troponin T 0.152 H* Total Protein 5.7 L Albumin 2.9 L 09/24/18 09/24/18 09/24/18 06:26 06:30 07:32 WBC Hct MCV RDW Seg Neuts % (Manual) Lymphocytes % (Manual) Monocytes % (Manual) Seg Neutrophils # Man Lymphocytes # (Manual) Monocytes # (Manual) PT INR APTT Fibrinogen D-Dimer VBG pH Potassium 5.7 H Chloride Carbon Dioxide 12 L BUN 76 H Creatinine 6.1 H Glucose 270 H POC Glucose 136 H Lactic Acid 8.50 H* Calcium 7.4 L Total Bilirubin AST ALT Alkaline Phosphatase Total Creatine Kinase CK-MB (CK-2) Troponin T Total Protein Albumin 09/24/18 09/24/18 07:32 12:00 WBC Hct MCV RDW Seg Neuts % (Manual) Lymphocytes % (Manual) Monocytes % (Manual) Seg Neutrophils # Man Lymphocytes # (Manual) Monocytes # (Manual) PT INR APTT Fibrinogen D-Dimer VBG pH Potassium 5.4 H Chloride 107.8 H Carbon Dioxide 13 L BUN 73 H Creatinine 6.6 H Glucose 174 H POC Glucose Lactic Acid Calcium 7.3 L Total Bilirubin AST ALT Alkaline Phosphatase Total Creatine Kinase CK-MB (CK-2) 39.3 H Troponin T Total Protein Albumin Assessment and Plan 73 y/o female with cardiac arrest, in house, severe coagulopathy, transaminitis, hypotension, hypothermia etiology unknown 1. Picture does appear to be consistent with DIC, possible infectious origin. Agree with broad spec abx and added antifungal therapy as well. With Low Fibri nogen, will give cryopreciptate as well. Will also given Vitamin K and Xa blockers 2. No sedation 3. Continue vent support 4. Serial coags should be obtained, at least every 6 hours 5. Consider ultrasound of heart given size on CXR, despite it being a portable film. Will ask cards about it and get there opinion. May not change ultimate management unless this is related to hypotension that is currently present. 6. Overall prognosis is guarded to poor CCT 31
[2018-09-24] MEDS ORDERED: ZOSYN/NS 3.375GM/50ML 3.375 GM/50 ML BAG IV SCH (14:00)
--- NOTE | 2018-09-24 14:31 | Event Note ---
Date: 09/24/18 73-year-old female was presented to the emergency department for complaints of generalized weakness and hypoglycemia. patient was treated for hypoglycemia and corrected. Patient had abnormal coag results with some bleeding. The picture looks like DIC. In the mean time the patient lost pulse and briefly resuscitated with THEA, patient was intubated and transferred to The high probability of a clinically significant, sudden or life threatening deterioration of the [CV, respiratory, hematology] system(s) required my full and direct attention, intervention and personal management. The aggregate critical care time was [32] minutes. This time is in addition to time spent performing reported procedures but includes the following: [x] Data Review and interpretation [x] Patient assessment and monitoring of vital signs [x] Documentation [x] Medication orders and management ICU. patient is on pressors, on broad- spectrum antibiotics, cryoprecipitate. Director Quality Systems, presto log operator and seed district sales manager consulted. Continue management per H&P.
--- NOTE | 2018-09-24 14:40 | Operative Report ---
Operative Report Operative Report: Operative note: Date: 09/24/2018 Preoperative diagnosis: Renal failure Postoperative diagnosis: Same. Operation: Left femoral Vas-Cath insertion Surgeon: Ciara Macias. Asst.: None Anesthesia: Local EBL: Minimal Findings: None Indications: 73-year-old female with multiorgan failure and acute renal failure requiring renal replacement therapy. Patient was on anticoagualtion with Xarelto and is overtherapeutic. She was given Kcentra, cryo. It was discussed with family in detail including increased risk of bleeding and they agreed, signed informed consent. Operative details: Patient was brought to the Radio Engineer, prepped and draped right groin in a sterile fashion. After timeout performed and all team members in the agreement right femoral vein was accessed under ultrasound guidance with micropuncture needle and exchanged for micropuncture sheath. Wire was advanced in the femoral vein and proximally. Skin incision was nicked with 11 blade and serially dilated skin past with subsequent insertion of Vas-Cath catheter 30 cm in length. Ports were checked for good flow and flushed with saline. Catheter was secured in place with 3-0 nylon stitches and sterile dressing applied, followed by pressure dressing. She tolerated the procedure well.
[2018-09-24] MEDS ORDERED: NACL 0.9% 100 ML IV PRN (15:09)
[2018-09-24] MEDS ORDERED: ALBURX 25% (ALBUMIN) IV PRN (15:39)
[2018-09-24] MEDS ORDERED: ALBURX 25% (ALBUMIN) IV STA (15:41)
--- NOTE | 2018-09-24 15:46 | Consultation ---
History of Present Illness - Reason for Consult Consult date: 09/24/18 Vascath - History of Present Illness 73 year old female with a past medical history of HFpEF, permanent atrial fibrillation, anticoagulated with xarelto, HTN, HLP, DM, CKD, CVI. She is intubated on evaluation. HPI obtained per the chart. Per chart, pt has been experiencing generalized weakness and lethargy with decreased oral intake for the past 3 weeks. She was noted to develop confusion and increased lethargy and weakness yesterday evening. Following arrival to ED, pt was noted to be hypotensive and hypoglycemic with hypothermia. This morning in ED, the patient became restless, developed agonal respirations, and became unresponsive. She was noted to be in PEA and ACLS was initiated. She received 1 dose of epinephrine and was intubated and ROSC was obtained. Labwork is significant for coagulopathy with INR >17, DDimer >4K, fibrinogen 140, acute renal failure, hyperkalemia, lactic acidosis, transaminitis. Pt is currently intubated, on levophed gtt, bleeding noted from OG tube. Pt underwent right lower extremity greater saphenous ablation on 09/09/[address] Castillo. She had routine negative DVT ultrasound on 09/13/18. Echo done 10/2017 showed EF 50-55%, RA severely dilated, mod MR, severe TR, mild to mod W[place], RV mod dilated, mod pulm HTN with RVSP 58mmHg. Lexiscan MPI stress test done 06/2017 showed small partly reversible anterior wall defect, severe septal hypokinesis, EF 57%, suggestive of small area of prior infarction with minimal residual ischemia in the LAD, no significant ischemia. Past History Past Medical History: atrial fib, diabetes, hypertension, hyperlipidemia, other (CKD; CVI) Medications and Allergies Allergies Allergy/AdvReac Type Severity Reaction Status Date / Time No Known Allergies Allergy Unverified 08/26/18 17:14 Home Medications Medication Instructions Recorded Confirmed Last Taken Type Allopurinol [Zyloprim] 100 mg PO QDAY 09/24/18 09/24/18 Unknown History Atenolol [Tenormin] 50 mg PO BID 09/24/18 09/24/18 Unknown History AtorvaSTATin [Lipitor] 20 mg PO QHS 09/24/18 09/24/18 Unknown History Diltiazem HCl [Diltiazem ER] 300 mg PO QDAY 09/24/18 09/24/18 Unknown History Levothyroxine Sodium 137 mcg PO QDAY 09/24/18 09/24/18 Unknown History [Levothyroxine] Linagliptin [Tradjenta] 5 mg PO QAM 09/24/18 09/24/18 Unknown History Paricalcitol 1 mcg PO QDAY 09/24/18 09/24/18 Unknown History Rivaroxaban [Xarelto] 15 mg PO QPM 09/24/18 09/24/18 Unknown History Active Meds: Active Medications Acetaminophen (Tylenol) 650 mg WV Q4H PRN PRN Reason: Fever >101 Albumin Human (Alburx 25% (Albumin)) 25 gm IV CAROLIN PRN PRN Reason: Hypotension Famotidine (Pepcid) 20 mg IV DAILY [facility] Last Admin: 09/24/18 10:49 Dose: 20 mg Documented by: Hydrophilic Ointment (Vaseline Lip Therapy) 1 applic TP Q2HR PRN PRN Reason: Dry Lips Norepinephrine (Levophed Drip 4 Mg/Ns 250 Ml) 4 mg in 250 mls @ 7.5 mls/hr IV TITR KATHRINE; Protocol Last Titration: 09/24/18 08:20 Dose: 6 mcg/min, 22.5 mls/hr Documented by: Sodium Chloride (Nacl 0.9% 1000 Ml) 1,000 mls @ 125 mls/hr IV DIRECT KATHRINE Last Admin: 09/24/18 10:48 Dose: 125 mls/hr Documented by: Piperacillin Sod/Tazobactam Sod (Zosyn/Ns 2.25 Gm/50ml) 2.25 gm in 50 mls @ 100 mls/hr IV Q8H [facility] Last Admin: 09/24/18 12:08 Dose: 100 mls/hr Documented by: Sodium Chloride (Nacl 0.9%) 100 mls @ 999 mls/hr IV CAROLIN PRN PRN Reason: Hypotension Morphine Sulfate (Morphine) 2 mg IV Q4H PRN PRN Reason: Pain, Moderate (4-6) Last Admin: 09/24/18 15:00 Dose: 2 mg Documented by: Multi-Ingred Cream/Lotion/Oil/Oint (Artificial Tears Ophth Oint) 1 applic OU Q4HR PRN PRN Reason: Dry Eye(s) Ondansetron HCl (Zofran) 4 mg IV Q8H PRN PRN Reason: Nausea And Vomiting Review of Systems ROS unobtainable: due to mental status Exam - Constitutional Vitals: Temp Pulse Resp BP Pulse Ox 97.8 F 112 H 18 110/74 97 09/24/18 11:45 09/24/18 14:42 09/24/18 09:25 09/24/18 14:42 09/24/18 14:42 General appearance: Present: other (intubated) - Respiratory Respiratory effort: other (intubated) - Extremities Extremities: abnormal (right femoral TLC) - Neurologic Neurologic: other (intubated, makes some movements to grab at different structures) Results - Labs CBC & Chem 7: 09/24/18 12:00 09/24/18 07:32 Labs: Abnormal lab results 09/23/18 09/24/18 09/24/18 Range/Units 23:58 01:14 01:14 WBC 12.2 H (4.5-11.0) K/mm3 Hct 43.8 H (30.3-42.9) % MCV 100 H (79-97) fl RDW 21.5 H (13.2-15.2) % Seg Neuts % (Manual) 81.0 H (40.0-70.0) % Lymphocytes % (Manual) 6.0 L (13.4-35.0) % Monocytes % (Manual) 8.0 H (0.0-7.3) % Seg Neutrophils # Man 9.9 H (1.8-7.7) K/mm3 Lymphocytes # (Manual) 0.7 L (1.2-5.4) K/mm3 Monocytes # (Manual) 1.0 H (0.0-0.8) K/mm3 PT (12.2-14.9) Sec. INR (0.87-1.13) APTT (24.2-36.6) Sec. Fibrinogen (211-480) mg/dl D-Dimer (0-234) ng/mlDDU VBG pH (7.320-7.420) Potassium (3.6-5.0) mmol/L Chloride (98-107) mmol/L Carbon Dioxide (22-30) mmol/L BUN (7-17) mg/dL Creatinine (0.7-1.2) mg/dL Glucose (65-100) mg/dL POC Glucose 50 L (70-105) Lactic Acid 8.90 H* (0.7-2.0) mmol/L Calcium (8.4-10.2) mg/dL Total Bilirubin (0.1-1.2) mg/dL AST (5-40) units/L ALT (7-56) units/L Alkaline Phosphatase (35-129) units/L Total Creatine Kinase (30-135) units/L CK-MB (CK-2) (0.0-4.0) ng/mL Troponin T (0.00-0.029) ng/mL Total Protein (6.3-8.2) g/dL Albumin (3.9-5) g/dL 09/24/18 09/24/18 09/24/18 Range/Units 01:14 03:03 03:13 WBC (4.5-11.0) K/mm3 Hct (30.3-42.9) % MCV (79-97) fl RDW (13.2-15.2) % Seg Neuts % (Manual) (40.0-70.0) % Lymphocytes % (Manual) (13.4-35.0) % Monocytes % (Manual) (0.0-7.3) % Seg Neutrophils # Man (1.8-7.7) K/mm3 Lymphocytes # (Manual) (1.2-5.4) K/mm3 Monocytes # (Manual) (0.0-0.8) K/mm3 PT > 120.0 H (12.2-14.9) Sec. INR > 17.67 H* (0.87-1.13) APTT 63.4 H* (24.2-36.6) Sec. Fibrinogen (211-480) mg/dl D-Dimer (0-234) ng/mlDDU VBG pH (7.320-7.420) Potassium 5.8 H (3.6-5.0) mmol/L Chloride (98-107) mmol/L Carbon Dioxide 12 L (22-30) mmol/L BUN 78 H (7-17) mg/dL Creatinine 6.4 H (0.7-1.2) mg/dL Glucose 157 H (65-100) mg/dL POC Glucose 142 H (70-105) Lactic Acid (0.7-2.0) mmol/L Calcium 8.0 L (8.4-10.2) mg/dL Total Bilirubin 5.10 H (0.1-1.2) mg/dL AST 623 H (5-40) units/L ALT 264 H (7-56) units/L Alkaline Phosphatase 219 H (35-129) units/L Total Creatine Kinase (30-135) units/L CK-MB (CK-2) (0.0-4.0) ng/mL Troponin T (0.00-0.029) ng/mL Total Protein 5.9 L (6.3-8.2) g/dL Albumin 3.1 L (3.9-5) g/dL 09/24/18 09/24/18 09/24/18 Range/Units 03:13 03:13 04:06 WBC (4.5-11.0) K/mm3 Hct (30.3-42.9) % MCV (79-97) fl RDW (13.2-15.2) % Seg Neuts % (Manual) (40.0-70.0) % Lymphocytes % (Manual) (13.4-35.0) % Monocytes % (Manual) (0.0-7.3) % Seg Neutrophils # Man (1.8-7.7) K/mm3 Lymphocytes # (Manual) (1.2-5.4) K/mm3 Monocytes # (Manual) (0.0-0.8) K/mm3 PT 120.0 H > 120.0 H (12.2-14.9) Sec. INR > 17.67 H* > 17.67 H* (0.87-1.13) APTT 61.3 H* 63.2 H* (24.2-36.6) Sec. Fibrinogen (211-480) mg/dl D-Dimer (0-234) ng/mlDDU VBG pH 7.137 L* (7.320-7.420) Potassium (3.6-5.0) mmol/L Chloride (98-107) mmol/L Carbon Dioxide (22-30) mmol/L BUN (7-17) mg/dL Creatinine (0.7-1.2) mg/dL Glucose (65-100) mg/dL POC Glucose (70-105) Lactic Acid (0.7-2.0) mmol/L Calcium (8.4-10.2) mg/dL Total Bilirubin (0.1-1.2) mg/dL AST (5-40) units/L ALT (7-56) units/L Alkaline Phosphatase (35-129) units/L Total Creatine Kinase (30-135) units/L CK-MB (CK-2) (0.0-4.0) ng/mL Troponin T (0.00-0.029) ng/mL Total Protein (6.3-8.2) g/dL Albumin (3.9-5) g/dL 09/24/18 09/24/18 09/24/18 Range/Units 04:06 04:06 04:26 WBC (4.5-11.0) K/mm3 Hct (30.3-42.9) % MCV (79-97) fl RDW (13.2-15.2) % Seg Neuts % (Manual) (40.0-70.0) % Lymphocytes % (Manual) (13.4-35.0) % Monocytes % (Manual) (0.0-7.3) % Seg Neutrophils # Man (1.8-7.7) K/mm3 Lymphocytes # (Manual) (1.2-5.4) K/mm3 Monocytes # (Manual) (0.0-0.8) K/mm3 PT (12.2-14.9) Sec. INR (0.87-1.13) APTT (24.2-36.6) Sec. Fibrinogen 140 L (211-480) mg/dl D-Dimer 4810.69 H (0-234) ng/mlDDU VBG pH (7.320-7.420) Potassium 5.7 H (3.6-5.0) mmol/L Chloride (98-107) mmol/L Carbon Dioxide 11 L (22-30) mmol/L BUN 76 H (7-17) mg/dL Creatinine 6.1 H (0.7-1.2) mg/dL Glucose 175 H (65-100) mg/dL POC Glucose 154 H (70-105) Lactic Acid (0.7-2.0) mmol/L Calcium 7.5 L (8.4-10.2) mg/dL Total Bilirubin 4.80 H (0.1-1.2) mg/dL AST 606 H (5-40) units/L ALT 255 H (7-56) units/L Alkaline Phosphatase 197 H (35-129) units/L Total Creatine Kinase 1306 H (30-135) units/L CK-MB (CK-2) 37.5 H (0.0-4.0) ng/mL Troponin T 0.152 H* (0.00-0.029) ng/mL Total Protein 5.7 L (6.3-8.2) g/dL Albumin 2.9 L (3.9-5) g/dL 09/24/18 09/24/18 09/24/18 Range/Units 06:26 06:30 07:32 WBC (4.5-11.0) K/mm3 Hct (30.3-42.9) % MCV (79-97) fl RDW (13.2-15.2) % Seg Neuts % (Manual) (40.0-70.0) % Lymphocytes % (Manual) (13.4-35.0) % Monocytes % (Manual) (0.0-7.3) % Seg Neutrophils # Man (1.8-7.7) K/mm3 Lymphocytes # (Manual) (1.2-5.4) K/mm3 Monocytes # (Manual) (0.0-0.8) K/mm3 PT (12.2-14.9) Sec. INR (0.87-1.13) APTT (24.2-36.6) Sec. Fibrinogen (211-480) mg/dl D-Dimer (0-234) ng/mlDDU VBG pH (7.320-7.420) Potassium 5.7 H (3.6-5.0) mmol/L Chloride (98-107) mmol/L Carbon Dioxide 12 L (22-30) mmol/L BUN 76 H (7-17) mg/dL Creatinine 6.1 H (0.7-1.2) mg/dL Glucose 270 H (65-100) mg/dL POC Glucose 136 H (70-105) Lactic Acid 8.50 H* (0.7-2.0) mmol/L Calcium 7.4 L (8.4-10.2) mg/dL Total Bilirubin (0.1-1.2) mg/dL AST (5-40) units/L ALT (7-56) units/L Alkaline Phosphatase (35-129) units/L Total Creatine Kinase (30-135) units/L CK-MB (CK-2) (0.0-4.0) ng/mL Troponin T (0.00-0.029) ng/mL Total Protein (6.3-8.2) g/dL Albumin (3.9-5) g/dL 09/24/18 09/24/18 09/24/18 Range/Units 07:32 12:00 12:00 WBC (4.5-11.0) K/mm3 Hct (30.3-42.9) % MCV (79-97) fl RDW (13.2-15.2) % Seg Neuts % (Manual) (40.0-70.0) % Lymphocytes % (Manual) (13.4-35.0) % Monocytes % (Manual) (0.0-7.3) % Seg Neutrophils # Man (1.8-7.7) K/mm3 Lymphocytes # (Manual) (1.2-5.4) K/mm3 Monocytes # (Manual) (0.0-0.8) K/mm3 PT (12.2-14.9) Sec. INR (0.87-1.13) APTT (24.2-36.6) Sec. Fibrinogen (211-480) mg/dl D-Dimer (0-234) ng/mlDDU VBG pH (7.320-7.420) Potassium 5.4 H (3.6-5.0) mmol/L Chloride 107.8 H (98-107) mmol/L Carbon Dioxide 13 L (22-30) mmol/L BUN 73 H (7-17) mg/dL Creatinine 6.6 H (0.7-1.2) mg/dL Glucose 174 H (65-100) mg/dL POC Glucose (70-105) Lactic Acid 7.20 H* (0.7-2.0) mmol/L Calcium 7.3 L (8.4-10.2) mg/dL Total Bilirubin (0.1-1.2) mg/dL AST (5-40) units/L ALT (7-56) units/L Alkaline Phosphatase (35-129) units/L Total Creatine Kinase 1519 H (30-135) units/L CK-MB (CK-2) 39.3 H (0.0-4.0) ng/mL Troponin T 0.192 H* D (0.00-0.029) ng/mL Total Protein (6.3-8.2) g/dL Albumin (3.9-5) g/dL Assessment and Plan 73 year old female with multiple medical issues who presents with acute renal failure among other issues and requires emergent hemodialysis access. Has severe coagulopathy and is oozing from multiple sites. Discussed with Dr. Huddleston of cardiology. We decided to procede with Kcentra/PCC to attempt to reverse coagulopathy to allow for hemodialysis access to be performed safely. Plan for vascath after Kcentra administration.
[2018-09-24 17:52] LABS: Hematocrit 39.8 % (30.3-42.9); Hemoglobin 12.4 gm/dl (10.1-14.3)
[2018-09-24 18:07] LABS: Hepatitis B Surface Antigen Non-Reactive (Negative); Hepatitis C Virus Antibody Non-Reactive (NonReactive)
[2018-09-24 18:21] LABS: Creatine Kinase MB 35.9 ng/mL (0.0-4.0)
[2018-09-24] MEDS ORDERED: NEO-SYNEPHRINE 100 MG in NACL 0.9% 90 ML IV SCH (19:00)
--- NOTE | 2018-09-24 19:49 | Event Note ---
Date: 09/24/18 [id number]
[2018-09-24 20:40] LABS: Mean Corpuscular HGB Conc 30 % (30-34); Mean Corpuscular Volume 103 fl (79-97); Red Blood Count 3.64 M/mm3 (3.65-5.03)
[2018-09-24 20:42] LABS: Hematocrit 37.7 % (30.3-42.9); Hemoglobin 11.4 gm/dl (10.1-14.3); Red Cell Distribution Width 21.4 % (13.2-15.2)
[2018-09-24] MEDS ORDERED: NACL 0.9% 1000 ML 1,000 ML IV SCH (21:00)
[2018-09-24 21:10] LABS: Partial Thromboplastin Time 224.9 Sec. (24.2-36.6)
[2018-09-24] MEDS ORDERED: INTROPIN DRIP 800 MG/D5W 250 ML 800 MG/250 ML BAG IV SCH ×2 (21:25→22:00)
[2018-09-24 21:44] LABS: Platelet Count 57 K/mm3 (140-440)
[2018-09-24 21:45] LABS: Basophils % (Manual) 0 % (0.0-1.8); Eosinophils % (Manual) 0 % (0.0-4.3); Total Cells Counted 100
[2018-09-24 21:46] LABS: Anisocytosis 1+; Ovalocytes 1+; Platelet Estimate Appears Decreased; Poikilocytosis 1+
[2018-09-24] MEDS ORDERED: ADRENALIN 8 MG in NACL 0.9% 250ML 242 ML IV SCH (23:00)
--- NOTE | 2018-09-24 23:28 | Consultation ---
REFERRED BY: Dr. French. REASON FOR CONSULTATION: Elevated PT, PTT, ?DIC. HISTORY OF PRESENT ILLNESS: I saw the patient, a 73-year-old female in the medical floor. The patient's daughters are present in the room. As per the family members, the patient went to [place] in the middle of last year and had ulceration on the right leg. When she came back to [place], she used [id number] medication, later saw a government affairs specialist, was referred to a vascular physician. The patient underwent some vascular procedure, which appears to be venous procedure. Details not clear. She also had left leg blistering as per family members after the vascular procedure, which was just few weeks ago. The patient became more unwell. The patient has been having general weakness, not eating and drinking for the last 5 days. EMS was called. Blood sugar was very low. In late August, the patient had nosebleed and was in the ER, local treatment was done and the patient was discharged. During this admission, blood sugar was low and also BP was low. The patient was in the ER and then transferred to the ICU. Blood test showed abnormal PT, PTT, D-dimer, LFTs and lactic acid. The patient was in cardiopulmonary arrest and later resuscitated, intubated. The patient has been having bleeding from mouth, nose and vaginal area. I have been asked to evaluate the patient to see if there is DIC. PAST MEDICAL HISTORY: AFib, on Xarelto, being followed by the Cardiology team. Other history includes diabetes, hypertension, mention of DVT and renal insufficiencies. PAST SURGICAL HISTORY: Leg vascular procedure in 08/2018. FAMILY HISTORY: Noncontributory. SOCIAL HISTORY: No history of tobacco or alcohol usage. HOME MEDICATIONS: Included allopurinol, atenolol, Lipitor, diltiazem, levothyroxine, Tradjenta, paricalcitol, Xarelto. ALLERGIES: None. REVIEW OF SYSTEMS: Not reliable. The patient is intubated. PHYSICAL EXAMINATION: VITAL SIGNS: Temperature 97, pulse 142, respirations 12, BP 110/88, intubated, has OG tube. There is blood in the same. HEART: S1, S2. LUNGS: Decreased air entry anteriorly. ABDOMEN: Soft. EXTREMITIES: Leg has bandage above the ankle. NEUROLOGIC: Intubated. Not able to evaluate. LABORATORY DATA: White cell 12, hemoglobin 13, MCV 100, platelet 151. PT 120, PTT 61, potassium 5.8, creatinine 6.4, lactic acid 8.9, calcium 8, bilirubin 5, AST 623, ALT 264. RADIOLOGY: Chest x-ray was done. ASSESSMENT: 1. Coagulopathy, most likely Xarelto related. The patient has already been given prothrombin complex concentrate. 2. D-dimer is elevated. It is difficult to know in presence of abnormal LFTs the reason for the elevated D-dimers. 3. Platelets are low, but not low enough. 4. Renal impairment. 5. Hyperkalemia. 6. Orally intubated. 7. History of bleeding. 8. History of leg issues. 9. History of atrial fibrillation, on Xarelto. 10. History of deep venous thrombosis. 11. History of hypertension. 12. History of diabetes. 13. History of hypothyroidism. 14. I discussed with Cardiology team and pressors are ongoing. I later spoke to Dr. French. Pharmacy has been consulted to see if Andexanet is available. We will repeat labs to see the trend. The patient's prognosis is not good because of the cardiac arrest. Supportive care is being done. I will follow the patient during inpatient stay. JOB# [id number] NM/NTS
--- NOTE | 2018-09-24 23:35 | Ultrasound Report ---
FINAL REPORT PROCEDURE: US ABDOMEN COMPLETE TECHNIQUE: Real-time sonography in multiple planes of the abdomen was performed with image documenta tion. CPT 74060 HISTORY: Hypotension with Liver Failure COMPARISON: No prior studies are available for comparison. FINDINGS: Liver: Normal size and echotexture with no evidence of cystic or solid mass lesions. Gallbladder: The gallbladder is not identified on this study.. Intrahepatic bile ducts: Normal caliber . Extrahepatic bile ducts: Common bile duct measures 6.5 millimeters. Pancreas: Not well imaged.. Aorta: Not well imaged. IVC: Not well imaged. RIGHT kidney: There is no hydronephrosis. There is a cyst off the renal cortex this measures 5.9 cent imeters.. Length: 11cm. LEFT kidney: Normal echotexture. No focal renal mass, calculus, or hydronephrosis . Length: 9.3cm. Spleen: Normal size and echotexture. No focal lesions. Intraperitoneal fluid: None . Other: Bilateral pleural effusions are noted. IMPRESSION: The gallbladder is not seen on this study. This may be related to contraction or absent. The common b ile duct is normal measuring 6.5 centimeters. The structures in the mid abdomen not well imaged due to overlying bowel gas. There is a cyst off the right renal cortex is measures 5.9 centimeters. No hydronephrosis. Bilateral small pleural effusions are noted..
[2018-09-25] MEDS ORDERED: NACL 0.9% 1000 ML 1,000 ML IV ONE (01:47)
[2018-09-25] MEDS: ZOSYN/NS 2.25 GM/50ML 2.25 GM/50 ML BAG IV SCH (01:58)
[2018-09-25] MEDS ORDERED: ADRENALIN ONE (03:16)
[2018-09-25 04:09] VITALS: BP 74/48
--- NOTE | 2018-09-25 04:16 | Event Note ---
Date: 09/25/18 CODE BLUE Initial rhythm PEA, the patient is maxed out on several drips including epinephrine After several rounds of CPR, there was rosc Discussed CODE STATUS with family He is referred to code sheet for details Addendum Patient coded again Daughter at bedside refuse further resuscitation efforts She laid over her mother's body An A and D was signed Discussed with the daughter and granddaughter in [place] Time of [id number]
--- NOTE | 2018-09-25 07:28 | Death Summary ---
Summary - Providers Date of service: 09/25/18 Consults: 09/24/18 04:55 Consult to Dietitian/Nutrition [CONS] Routine Physician Instructions: Reason For Exam: Reason for Consult: Evaluate nutritional intake 09/24/18 05:10 Consult to Physician [CONS] Urgent Comment: DR TRIPLETT AWARE OF PT Consulting Provider: RADHA TRIPLETT Physician Instructions: Reason For Exam: acute on chronic renal failure 09/24/18 05:18 Consult to Physician [CONS] Urgent Comment: DR WILKES NOTIFIED 527 Consulting Provider: MAYCO WILKES Physician Instructions: Reason For Exam: septic shock, multiorgan dysfunction 09/24/18 07:54 Consult to Physician [CONS] Urgent Comment: DR Jose NAVARRO NOTIFIED 08 Consulting Provider: BHANU CRUZ Physician Instructions: Reason For Exam: Bleeding 09/24/18 07:57 Consult to Physician [CONS] Urgent Comment: Consulting Provider: PRABHAKAR CHRISTY Physician Instructions: Reason For Exam: VAS cath 09/24/18 09:08 Consult to Physician [CONS] Routine Comment: Consulting Provider: JORJE HOWARD Physician Instructions: Reason For Exam: DIC Attending: ASHLEIGH RUTH MD - summary Date of admission: 09/24/18 06:25 Date of : 09/25/18 Reason for admission: DIC, generalized weakness, hypoglycemia, bleeding Significant findings: 73-year-old -[place] female was presented to the emergency department with complaints of generalized weakness. In the ED workup shows that the patient does hypoglycemic, and she has minimal bleeding and workups consistent with DIC. Patient was treated with IV dextrose and hypoglycemia was resolved. In the meantime patient had PEA and coded briefly with THEA. Patient most consciousness and intubated, on mechanical ventilation, and her pressures were very low and placed on pressors. Patient was on xarelto and I have asked her daughters why she is on it they said that there no sure why she is on Xarelto, the patient has heart conditions. Patient had recent procedure in vein clinic at [place]. Hematology oncology was consulted and patient was given cryoprecipitate. Patient's lactic acid level was high and I have started her with broad-spectrum antibiotics including antifungals for possible septic shock as a cause of DIC. Patient is also on IV fluids. Despite that she was coded yesterday afternoon, patient was coded according to ACLS protocol and THEA obtained. Patient was coded overnight multiple times and finally the daughter decided to make her DO NOT RESUSCITATE and patient earlier this morning before my shift starts. Patient had acute renal failure and nephrology was consulted and was started with hemodialysis. Procedures/treatments rendered: As stated up she was treated with IV fluids, cryoprecipitate, broad-spectrum antibiotics including antifungals, patient was intubated and on mechanical ventilation, patient was treated with IV dextrose and blood sugar was within normal limits during the day. Pertinent studies: Echo ejection fraction 20-25% with diastolic dysfunction Abdominal ultrasound Chest x-ray Coagulation studies - Final diagnosis (1) Acute on chronic renal failure Note: Final diagnosis: (2) Cardiac arrest Note: Final diagnosis: (3) Coagulopathy Note: Final diagnosis: (4) Elevated LFTs Note: Final diagnosis: (5) Hyperkalemia Note: Final diagnosis: (6) Lactic acid acidosis Note: Final diagnosis: (7) Multiple organ failure Note: Final diagnosis: (8) Pulmonary infiltrate Note: Final diagnosis: (9) Septic shock Note: Final diagnosis: (10) Atrial fibrillation Note: Final diagnosis: (11) Chronic venous insufficiency Note: Final diagnosis: (12) Diabetes Note: Final diagnosis: (13) DIC (disseminated intravascular coagulation) Note: Final diagnosis:
[2018-09-26 00:40] LABS: PT 1 Hour Mix TNR; Prothrombin Time TNR Sec.
== END 2018-09-25 04:25 | DRG 871 ==
LOC: ED 23:47 → CC1 09-24 06:25
PROVIDERS: ADMIT Internal Medicine; ATTEND Internal Medicine
PROC: 5A1935Z Respiratory Ventilation, Less than 24 Consecutive Hours (ICD-10-PCS; principal; 2018-09-24)
PROC: 0BH17EZ Insertion of Endotracheal Airway into Trachea, Via Natural or Artificial Opening (ICD-10-PCS; 2018-09-24)
PROC: 4A033R1 Measurement of Arterial Saturation, Peripheral, Percutaneous Approach (ICD-10-PCS; 2018-09-24)
PROC: 5A1D70Z Performance of Urinary Filtration, Intermittent, Less than 6 Hours Per Day (ICD-10-PCS; 2018-09-24)
PROC: 06HM33Z Insertion of Infusion Device into Right Femoral Vein, Percutaneous Approach (ICD-10-PCS; 2018-09-24)
PROC: 06HM33Z Insertion of Infusion Device into Right Femoral Vein, Percutaneous Approach (ICD-10-PCS; 2018-09-24)
PROC: B54BZZA Ultrasonography of Right Lower Extremity Veins, Guidance (ICD-10-PCS; 2018-09-24)
PROC: B54BZZA Ultrasonography of Right Lower Extremity Veins, Guidance (ICD-10-PCS; 2018-09-24)
PROC: 5A1945Z Respiratory Ventilation, 24-96 Consecutive Hours (ICD-10-PCS; 2018-09-24)
PROC: 30233M1 Transfusion of Nonautologous Plasma Cryoprecipitate into Peripheral Vein, Percutaneous Approach (ICD-10-PCS; 2018-09-25)
PROC: 5A12012 Performance of Cardiac Output, Single, Manual (ICD-10-PCS; 2018-09-25)
DX: A41.9 Sepsis, unspecified organism (principal); R65.21 Severe sepsis with septic shock; D65 Disseminated intravascular coagulation [defibrination syndrome]; J96.00 Acute respiratory failure, unspecified whether with hypoxia or hypercapnia; I21.4 Non-ST elevation (NSTEMI) myocardial infarction; K72.00 Acute and subacute hepatic failure without coma; N17.9 Acute kidney failure, unspecified; D68.9 Coagulation defect, unspecified; I50.30 Unspecified diastolic (congestive) heart failure; I13.0 Hypertensive heart and chronic kidney disease with heart failure and stage 1 through stage 4 chronic kidney disease, or unspecified chronic kidney disease; E87.2 Acidosis; I46.9 Cardiac arrest, cause unspecified; Z66 Do not resuscitate; I27.20 Pulmonary hypertension, unspecified; I08.1 Rheumatic disorders of both mitral and tricuspid valves; I48.2 Chronic atrial fibrillation; N18.9 Chronic kidney disease, unspecified; E87.5 Hyperkalemia; E11.649 Type 2 diabetes mellitus with hypoglycemia without coma; I87.2 Venous insufficiency (chronic) (peripheral); Z79.01 Long term (current) use of anticoagulants; Z86.718 Personal history of other venous thrombosis and embolism; Z79.899 Other long term (current) drug therapy; Z79.84 Long term (current) use of oral hypoglycemic drugs; I25.2 Old myocardial infarction
CPT/HCPCS: 36415; 36600; 71045; 74018; 76700; 80048; 80053; 80061; 80074; 82140; 82550; 82553; 82803; 82805; 82962; 84484; 85007; 85014; 85018; 85025; 85379; 85384; 85610; 85730; 86850; 86900; 86901; 86965; 87040; 87070; 87076; 87186; 87205; 92950; 93005; 93010; 93306; 94002; 94640; 96361; 96365; 96366; 96375; 96376; 99292; G0378; J0171; J0610; J1265; J1450; J1815; J1956; J2270; J2370; J2543; J3370; J3430; J7030; J7040; J7050; J7195; P9012; P9047